=== PATIENT | female | born 1950 | race Caucasian/White ===

== ENCOUNTER 2017-04-24 19:31 | Emergency (ER) | payer MEDICARE, OTHER ==
--- NOTE | 2017-04-24 20:14 | UC ---
Respiratory Complaint HPI - HPI Summary HPI Summary: Started with nasal congestion and cough about 1.5 weeks ago. Saw PCP for routine DM/HTN recheck 5 days ago and was started on doxycycline because of her PND and cough. Today cough is worse, feels lots of pressure in her head and nose , cannot lie down or she starts coughing. No measured fever; is having some sweats. - History of Current Complaint Hx Obtained From: Patient ?: No Onset/Duration: Gradual Onset, Lasting Days Timing: Constant Severity Initially: Mild Severity Currently: Moderate Character: Cough: Productive Aggravating Factors: Exertion, Deep Breaths, Recumbent Position Alleviating Factors: Upright Position Associated Signs And Symptoms: Positive: Wheezing, URI, Nasal Congestion <Hannah Oates - Last Filed: 04/24/17 20:08> <Nova Conrad - Last Filed: 04/24/17 21:27> - History of Current Complaint Chief Complaint: UCRespiratory Stated Complaint: COUGH,CONGESTION,HEADACHE,ST Time Seen by Provider: 04/24/17 19:56 - Allergies/Home Medications Allergies/Adverse Reactions: Allergies Allergy/AdvReac Type Severity Reaction Status Date / Time Zolpidem [From Ambien] Allergy Severe "MAKES ME Verified 04/24/17 19:44 SLEEP WALK" IODINE CONTRAST Allergy Severe Hives Uncoded 04/24/17 19:44 Home Medications: Home Medications Amphetamine MIXED SALT TAB* [Adderall TAB*] 20 mg PO BID 04/24/17 [History Confirmed 04/24/17] Atorvastatin* [Lipitor 10 MG*] 04/24/17 [History] DOXYcycline CAP(*) [DOXYcycline 100MG CAP(*)] 100 mg PO BID 04/24/17 [History Confirmed 04/24/17] Dextromethorphan-Guaifenesin [Guaifenesin/Dextromethorp 400-20 mg] 1 tab PO PRN 04/24/17 [History] Gabapentin CAP(*) [Neurontin 100 mg CAP(*)] 04/24/17 [History] Losartan TAB* [Cozaar TAB*] 25 mg PO DAILY 04/24/17 [History Confirmed 04/24/17] metFORMIN* [Glucophage 1000 MG TAB *] 1,000 mg PO DAILY 04/24/17 [History Confirmed 04/24/17] tiZANidine TAB* [Zanaflex TAB*] 2 mg PO BEDTIME 04/24/17 [History Confirmed ] PMH/Surg Hx/FS Hx/Imm Hx Endocrine History: Diabetes Cardiovascular History: Hypertension - Surgical History Surgical History: Yes Surgery Procedure, Year, and Place: BACK SURGERIES, HYSTERECTOMY - Family History Known Family History: Positive: Hypertension, Diabetes - Social History Occupation: Employed Full-time Lives: Alone Alcohol Use: None Substance Use Type: None Smoking Status (MU): Never Smoked Tobacco <Hannah Oates - Last Filed: 04/24/17 20:08> Review of Systems Constitutional: Chills Skin: Negative Eyes: Negative ENT: Sore Throat, Nasal Discharge, Sinus Congestion Respiratory: Cough Cardiovascular: Negative Gastrointestinal: Negative Genitourinary: Negative Motor: Negative Neurovascular: Negative Musculoskeletal: Negative Neurological: Negative Psychological: Negative Is Patient Immunocompromised?: No All Other Systems Reviewed And Are Negative: Yes <Hannah Oates - Last Filed: 04/24/17 20:08> Physical Exam Triage Information Reviewed: Yes Appearance: Well-Appearing, Pain Distress - mild Vital Signs: Initial Vital Signs Temp 97.7 F 04/24/17 19:37 Pulse 74 04/24/17 19:37 Resp 18 04/24/17 19:37 BP 186/94 04/24/17 19:37 Pulse Ox 98 04/24/17 19:37 Vital Signs Reviewed: Yes Eye Exam: Normal Eyes: Positive: Conjunctiva Clear ENT: Positive: Hearing grossly normal, Pharynx normal, Nasal congestion, Nasal drainage. Negative: Tonsillar swelling - no tonsils, Tonsillar exudate Dental Exam: Normal Neck exam: Normal Neck: Positive: Supple, Nontender, No Lymphadenopathy Respiratory Exam: Other - frequent congested cough Respiratory: Positive: Rhonchi, Wheezing, Expiration Cardiovascular Exam: Normal Cardiovascular: Positive: RRR, No Murmur Musculoskeletal Exam: Normal Neurological Exam: Normal Neurological: Positive: Alert Psychological Exam: Normal Skin Exam: Normal <Hannah Oates - Last Filed: 04/24/17 20:08> Vital Signs: Initial Vital Signs Temp 97.7 F 04/24/17 19:37 Pulse 74 04/24/17 19:37 Resp 18 04/24/17 19:37 BP 186/94 04/24/17 19:37 Pulse Ox 98 04/24/17 19:37 <Nova Conrad - Last Filed: 04/24/17 21:27> Diagnostic Evaluation - Laboratory O2 Sat by Pulse Oximetry: 98 - Radiology Xray Interpretation: No Acute Changes Radiology Interpretation Completed By: Radiologist <Hannah Oates - Last Filed: 04/24/17 20:08> Respiratory Course/Dx - Differential Dx/Diagnosis Provider Diagnoses: Acute bronchitis. sinusitis <Hannah Oates - Last Filed: 04/24/17 20:08> Discharge <Hannah Oates - Last Filed: 04/24/17 20:08> <Nova Conrad - Last Filed: 04/24/17 21:27> - Discharge Plan Condition: Stable Disposition: HOME Prescriptions: Acetaminop/Codeine 30 MG TAB* [Tylenol/Codeine 30 MG TAB*] 1 tab PO Q6H PRN #20 tab MDD 4 PRN Reason: Cough Albuterol HFA INHALER* [Ventolin HFA Inhaler*] 1 - 2 puff INH Q4H PRN #1 mdi PRN Reason: wheeze, cough Amoxicillin/Clavulanate TAB* [Augmentin TAB 875*] 875 mg PO BID #14 tab Benzonatate CAP* [Tessalon CAP*] 100 mg PO TID PRN #30 cap PRN Reason: Cough Fluticasone HFA 110 mcg(NF) [Flovent HFA 110 mcg(NF)] 1 puff INH BID #1 mdi Patient Education Materials: Acute Bronchitis (ED), Sinusitis (ED) Referrals: Cinthia Hedrick MD [Primary Care Provider] - 1 Week Additional Instructions: As we discussed, you can either start the alternate antibiotic (and stop the doxycycline) now, or you can give symptomatic treatment 48 hours to work and NOT start the new antibiotic at all if you are improving. The second option is safer in that it limits your antibiotic exposure, but that would be my "plan B" if inhalers and cough remedies don't help. If you become very ill or develop high fevers, please go to the emergency department. Attestation Statement User Type: Provider - I was available for consult. This patient was seen by the OZIEL. The patient was not presented to, seen by, or examined by me. -Cecy <Nova Conrad - Last Filed: 04/24/17 21:27>
[2017-04-24 20:33] VITALS: BP 230/89
[2017-04-24] MEDS ORDERED: Albuterol 2.5 MG/3 ML NEB.SOL* (0.083%) INH ONE (20:33)
--- NOTE | 2017-04-24 20:37 | RAD ---
Indication: Cough, night sweats. 2 views of the chest including dual energy PA views demonstrate no mediastinal shift. Heart is of normal size and configuration. Lung arias are clear. IMPRESSION: No active cardiopulmonary disease is noted.
[2017-04-24] MEDS ORDERED: Acetaminop/Codeine 30 MG TAB* 1 TAB (300 MG/30 MG) PO ONE (21:10)
== END 2017-04-24 21:24 | disposition home or self-care (01) ==
LOC: UCEAST 19:31
DX: J20.9 Acute bronchitis, unspecified (principal); J32.9 Chronic sinusitis, unspecified; E11.9 Type 2 diabetes mellitus without complications; I10 Essential (primary) hypertension; Z79.84 Long term (current) use of oral hypoglycemic drugs
CPT/HCPCS: 71020; 99213; A9270-GY; G0463

== ENCOUNTER 2017-07-05 10:00 | Emergency (ER) | payer MEDICARE, OTHER ==
[2017-07-05 10:55] VITALS: BP 155/80
--- NOTE | 2017-07-05 11:22 | UC ---
Back Pain HPI - HPI Summary HPI Summary: Patient presents with a past medical history of chronic back pain and states she is s/p back surgery with rods. She states she has been working 30-40 hours a week and has had increased pain in her lower back. She states that the pain has become severe and changed in quality and location. She reports pain in the lower thoracic and lumbar area that radiates into the right buttock, hip and now also into the labial area which has never occurred before. She denies incontinence of bowel or bladder. She denies any injury or trauma. She has been off narcotic pain meds for two years, and states currently her pain in not controlled in ibuprofen and gabapentin. - History of Current Complaint Chief Complaint: UCBackPain Stated Complaint: LOWER BACK PAIN Time Seen by Provider: 07/05/17 11:06 Hx Obtained From: Patient ?: No Onset/Duration: Gradual Onset, Lasting Days Timing: Constant Severity Initially: Moderate Severity Currently: Severe Back Pain: Is Diffuse - lower thoracic and lmbar, Radiates To - rightbuttock, hip, and lateral right leg. and labia Character: Sharp Aggravating Factor(s): Movement, Lifting, Bending, Walking Alleviating Factor(s): Nothing Related History: Previous Back Injury - s/p back surgery - Risk Factors AAA Risk Factors: Negative TAD Risk Factors: Negative Cauda Equina Risk Factors: Negative, Perineal Anesthesia - perineal pain Epidural Abscess Risk Factors: Negative - Allergies/Home Medications Allergies/Adverse Reactions: Allergies Allergy/AdvReac Type Severity Reaction Status Date / Time Zolpidem [From Ambien] Allergy Severe "MAKES ME Verified 04/24/17 19:44 SLEEP WALK" IODINE CONTRAST Allergy Severe Hives Uncoded 04/24/17 19:44 Home Medications: Home Medications Ibuprofen [Ibuprofen 200 MG] 07/05/17 [History] PMH/Surg Hx/FS Hx/Imm Hx Previously Healthy: Yes - Surgical History Surgical History: Yes Surgery Procedure, Year, and Place: 3 BACK SURGERIES, HYSTERECTOMY, gallbladder - Family History Known Family History: Positive: Hypertension, Diabetes - Social History Occupation: Employed Full-time Lives: Alone Alcohol Use: None Substance Use Type: None Smoking Status (MU): Never Smoked Tobacco Review of Systems Constitutional: Negative Skin: Negative Eyes: Negative ENT: Negative Respiratory: Negative Cardiovascular: Negative Gastrointestinal: Negative Genitourinary: Negative Motor: Other - lower thoracic and lumbar back pain that radiates into right buttock, hip, leg and labia. Neurovascular: Negative Musculoskeletal: Arthralgia, Myalgia, Other: - perineal pain Neurological: Negative Psychological: Negative Is Patient Immunocompromised?: No All Other Systems Reviewed And Are Negative: Yes Physical Exam Triage Information Reviewed: Yes Appearance: Well-Appearing Vital Signs: Initial Vital Signs Temp 97.6 F 07/05/17 10:47 Pulse 68 07/05/17 10:47 Resp 16 07/05/17 10:47 BP 155/80 07/05/17 10:47 Pulse Ox 100 07/05/17 10:47 Vital Signs Reviewed: Yes Eye Exam: Normal ENT Exam: Normal Neck exam: Normal Neck: Positive: 1 Respiratory Exam: Normal Cardiovascular Exam: Normal Abdominal Exam: Normal Musculoskeletal: Positive: Other: - back inspection, vertebra ae in good aligment with no step-off of deformites. no areas of eccymosis, erythma, or edema. Well healed midline incision of lumbar. palpation,pain of lower lumbar midline, as well as lateral musculature. motor, lower extremity strength testing equal 2+ Sensorey, without deficits to touch. gait, guarded leaning towards left. Neurological Exam: Normal Psychological Exam: Normal Skin Exam: Normal Back Pain Course/Dx - Course Course Of Treatment: Patient presents with a past medical history of chronic back pain s/p surgery with no use of narcotic pain meds for two years. She has returned to work and has been working extra and has increased back pain that has also changed and now radiates into the perneal area, therefore I feel this patient needs a very through work-up to ensure that there are not any new findings that would warrent additonal treatment so therefore she was referred to the ER, and she declined ambulance transport. At the time of discharge she was neruo-vasc intact. She was discharged home and states will transport self to ED. - Differential Dx/Diagnosis Differential Diagnosis/HQI/PQRI: Other - acute on chronic back pain Provider Diagnoses: acute on chronic back pain Discharge - Discharge Plan Condition: Stable Disposition: HOME Referrals: Cinthia Hedrick MD [Primary Care Provider] - Additional Instructions: Recommend she go to the ER for further evaluation of her back pain.
== END 2017-07-05 11:16 | disposition home or self-care (01) ==
LOC: UCEAST 10:00
DX: M54.9 Dorsalgia, unspecified (principal); G89.29 Other chronic pain; Z98.1 Arthrodesis status
CPT/HCPCS: 99211; G0463

== ENCOUNTER 2017-07-05 15:41 | Emergency (ER) | payer MEDICARE, OTHER ==
--- OUTSIDE RECORDS SUMMARY | 2017-07-05 16:21 | XMS REPORT ---
:1950 External Reference #:[id number] Author Organization [facility] Address [address] [place] [address] Phone [phone] Care Team Providers Name Role Phone Cinthia Hedrick M.D. Primary Care Physician Unavailable Payers Type Date Identification Numbers Payment Provider Subscriber Commercial Policy Number: [id number] [employer] Nelda Mustafa PayID: [id number] [address] [place] [address] Problems Date Description Provider Status Onset: Type 2 diabetes mellitus Active Note: (mild) Onset: 06/27/2017 Tear film insufficiency Moiz Maier M.D. Active Onset: 06/27/2017 Nuclear senile cataract Moiz Maier M.D. Active Family History Date Family Member(s) Problem(s) Comments Father No Current Problems Mother No Current Problems Social History Type Date Description Comments Marital Status Legal Status: Occupation Part-Time @ [employer] Work Status Part-Time Employment ETOH Use Denies alcohol use Smoking Patient has never smoked Recreational Drug Use Denies Drug Use Daily Caffeine Does Not Consume Caffeine Allergies, Adverse Reactions, Alerts Date Description Reaction Status Severity Comments 06/27/2017 NKDA active Medications Medication Date Status Form Strength Qnty SIG Indications Ordering Provider Losartan Active Tablets 25mg Cannariato, Potassium 00 Cinthia M.D. Tizanidine HCL Active Tablets 4mg Cannariato, 00 Cinthia M.D. Gabapentin Active Capsules 100mg Cannariato, 00 Cinthia M.D. Amphetamine-Dext Active Tablets 20mg Cannariato, roamphetamine 00 Cinthia M.D. Ibuprofen Active Tablets 800mg Cannariato, 00 Cinthia M.D. Atorvastatin Active Tablets 40mg Cannariato, Calcium 00 Cinthia Brody Flovent HFA Active Aerosol 110mcg/Act Unknown 00 Results Description No Information Procedures Description No Information Plan of Care 06/27/2017 - Moiz Maier M.D.E11.9 Type 2 diabetes mellitus without complicationsComments:Smoking can increase the risk of developing or worsening any eye related disease, as well as affect your overall health. If you are a smoker, we strongly recommend that you quit.If you are not a smoker, we strongly recommend that you do not start. You have diabetes. I do not detect any changes in both of your retinas from diabetes at this time. Proper control of your diabetes is important for the health of your eyes. Changes in your eyes from diabetes can happen without symptoms, so it is important that you have your eyes examined.Follow up:1 Year Follow Up DFE You can expect to have your eyes dilated at your next visit. If Dr. Maier orders any additional testing, it may require extra time. We recommend that you bring sunglasses, as dilation drops often make you light sensitive until they wear off. We always recommend you bring someone to drive you home if you are uncomfortable driving with your eyes dilated. If you have any questions before your next visit, feel free to call our office at .H25.13 Age-related nuclear cataract, bilateralComments:You have been diagnosed with cataracts. If you are happy with your vision as it is now, then we willsee you at your next scheduled appointment. If you feel like your vision is getting worse before your scheduled appointment, please call Soumya or Stephie at [phone].H04.123 Dry eye syndrome of bilateral lacrimal glandsComments:Both of your eyes appear to be dry. Use artificial tears as directed. You can use the tears more often if you are reading a book or are on the computer, as we tend to blink less, making our eyes dry out more.[facility] offers a few items in our optical department to help alleviate dry eye symptoms.
[2017-07-05] MEDS ORDERED: EPI INJ ONE (17:07)
[2017-07-05] MEDS ORDERED: [UNRECOGNIZED DRUG - OTHER] INJ ONE (17:07)
[2017-07-05] MEDS ORDERED: BUPIVICAINE INJ ONE (17:07)
[2017-07-05] MEDS ORDERED: Bupivacaine 0.5% W/EPI SDV* 30 ML VIAL ONE (17:08)
--- NOTE | 2017-07-05 17:31 | ED ---
Back Pain - HPI Summary HPI Summary: Pt with hx of chronic back pain with 3 prior surgeries with c/o L sided back pain radiating down the L leg. No numbness or weakness but having difficulty driving and walking. Works on her feet. Hx of lumbar fusion. No difficulty with urinary retention or incontinence. No difficulty with bowel control. No injury. Nl saddle sensation. Seen in and sent here for reevaluation and possible MRI. - History of Current Complaint Chief Complaint: EDBackInjuryPain Stated Complaint: LOWER BACK PAIN Time Seen by Provider: 07/05/17 16:59 Pain Intensity: 7 - Allergies/Home Medications Allergies/Adverse Reactions: Allergies Allergy/AdvReac Type Severity Reaction Status Date / Time Zolpidem [From Ambien] Allergy Severe "MAKES ME Verified 04/24/17 19:44 SLEEP WALK" IODINE CONTRAST Allergy Severe Hives Uncoded 04/24/17 19:44 PMH/Surg Hx/FS Hx/Imm Hx Endocrine/Hematology History: Reports: Hx Diabetes - type2 Denies: Hx Thyroid Disease Cardiovascular History: Reports: Hx Hypertension Respiratory History: Denies: Hx Asthma, Hx Chronic Obstructive Pulmonary Disease (COPD) GI History: Denies: Hx Ulcer Musculoskeletal History: Reports: Other Musculoskeletal History - chronic back pain - Cancer History Hx Chemotherapy: No Hx Radiation Therapy: No - Surgical History Surgery Procedure, Year, and Place: 3 BACK SURGERIES, HYSTERECTOMY, gallbladder Infectious Disease History: No Infectious Disease History: Denies: Hx Clostridium Difficile, Hx Hepatitis, Hx Human Immunodeficiency Virus (HIV), Hx of Known/Suspected MRSA, Hx Shingles, Hx Tuberculosis, Hx Known/ Suspected VRE, Hx Known/Suspected VRSA, History Other Infectious Disease, Traveled Outside the [place] in Last 30 Days - Family History Known Family History: Positive: Hypertension, Diabetes - Social History Occupation: Employed Part-time - at [employer] Alcohol Use: None Substance Use Type: Reports: None Hx Tobacco Use: No Smoking Status (MU): Never Smoked Tobacco Review of Systems Constitutional: Negative Respiratory: Negative Gastrointestinal: Negative Negative: Abdominal Pain Negative: frequency, incontinence, pain Positive: Myalgia, Decreased ROM. Negative: Arthralgia Skin: Negative Negative: Weakness, Numbness All Other Systems Reviewed And Are Negative: Yes Physical Exam Triage Information Reviewed: Yes Vital Signs On Initial Exam: Initial Vitals Temp Pulse Resp BP Pulse Ox 36.9 C 79 18 170/90 95 07/05/17 15:51 07/05/17 15:51 07/05/17 15:51 07/05/17 15:51 07/05/17 15:51 Vital Signs Reviewed: Yes Appearance: Positive: Well-Appearing Skin: Positive: Warm, Dry Head/Face: Positive: Normal Head/Face Inspection Neck: Positive: Supple Respiratory/Lung Sounds: Positive: Clear to Auscultation Cardiovascular: Positive: Normal, RRR Musculoskeletal: Positive: Other - tender to palpation in the L mid to low lumbar musculature. Straight leg raise on L produces only back pain. Neurological: Positive: Other - antalgic gait. Nl saddle sensation. 2+ patellar DTRs. AVPU Assessment: Alert Procedures - Procedure Summary Procedure Summary: Trigger Point injection: For: Pain Desc: Pt with L lumbar pain/spasm. Cleaned Left low lumbar musculature with alcohol. Injected a total of 18cc of 0.5% Bupivicaine with epi in divided aliquots into muscle. Massaged into tissues. Pain relief was excellent. Now able to walk normally. Mynor well, no complications. Diagnostics - Vital Signs Vital Signs Temp Pulse Resp BP Pulse Ox 07/05/17 15:51 36.9 C 79 18 170/90 95 - Laboratory Lab Statement: Any lab studies that have been ordered have been reviewed, and results considered in the medical decision making process. Re-Evaluation - Re-Evaluation First Eval Change: Improved - back pain nearly resolved with block. Gait normalized Back Pain Course/Dx - Course Course Of Treatment: Pt with mostly muscular pain. Some radiculopathy without evidence for acute disc. Now ambulatory after block. D/C with f/u. No indication for acute MRI. - Diagnoses Differential Diagnosis/HQI/PQRI: Positive: Cauda Equina Syndrome - no evidence for acute disc/cauda/conus syndromes, Herniated Disc, Strain, Sprain Provider Diagnoses: Acute lumbar myofascial strain, Lumbar radiculopathy, acute Discharge - Discharge Plan Condition: Good Disposition: HOME Prescriptions: Cyclobenzaprine HCl [Flexeril 5 mg (NF)] 5 mg PO TID PRN #15 tab PRN Reason: muscle pain Naproxen [Naproxen 500 mg] 500 mg PO Q8H PRN #10 tab PRN Reason: Pain predniSONE TAB* [Deltasone TAB*] 50 mg PO DAILY #3 tab Patient Education Materials: Sciatica (ED) Forms: *Work Release Referrals: Cinthia Hedrick MD [Primary Care Provider] - Additional Instructions: Return with numbness/weakness, difficulty with bowel or bladder, worse or other concerns as discussed.
[2017-07-05 17:37] VITALS: BP 157/66
== END 2017-07-05 17:36 | disposition home or self-care (01) ==
LOC: ED 15:41
DX: S39.012A Strain of muscle, fascia and tendon of lower back, initial encounter (principal); M54.16 Radiculopathy, lumbar region; M54.5 Low back pain; E11.9 Type 2 diabetes mellitus without complications; Z86.79 Personal history of other diseases of the circulatory system; X58.XXXA Exposure to other specified factors, initial encounter; Y93.9 Activity, unspecified; Y92.9 Unspecified place or not applicable
CPT/HCPCS: 99281

== ENCOUNTER 2017-09-14 10:15 | Emergency (ER) | payer MEDICARE ==
[2017-09-14] MEDS ORDERED: Ondansetron ODT TAB* 4 MG PO ONE (11:47)
[2017-09-14] MEDS ORDERED: Ketorolac INJ* 60 MG/2 ML VIAL IM ONE (11:47)
[2017-09-14] MEDS ORDERED: oxyCODONE/Acetamin 5/325 MG* TAB PO ONE (11:49)
--- NOTE | 2017-09-14 11:52 | RAD ---
INDICATION: Low back pain. COMPARISON: There are no prior studies available for comparison. TECHNIQUE: 3 views of the lumbar spine were obtained including lateral, AP and a coned-down lateral view of the lumbar sacral junction. FINDINGS: The vertebra are in normal alignment. The patient is status post posterior spinal fusion at the L4, L5 and S1 levels with pedicle screws. The surgical hardware appears intact. There appears to be partial fusion of the L4-L5 and L5-S1 discs. No fracture is seen. There is mild to moderate degenerative disc disease at the T12-L1, L1-L2, L2-L3 and L3-L4 levels. IMPRESSION: 1. MILD TO MODERATE DEGENERATIVE DISC DISEASE. 2. STATUS POST POSTERIOR SPINAL FUSION AT THE L4-S1 LEVELS.
[2017-09-14 12:48] LABS: Urine Appearance Clear; Urine Blood Negative (Negative); Urine Color Yellow; Urine Ketones Negative (Negative); Urine Protein Negative (Negative); Urine Specific Gravity 1.016 (1.010-1.030); Urine Urobilinogen Negative (Negative)
[2017-09-14 13:52] LABS: ABS Basophils 0 10^3/ul (0-0.2); ABS Eosinophils 0.3 10^3/ul (0-0.6); ABS Lymphocytes 2.8 10^3/ul (1.0-4.8); ABS Monocytes 0.5 10^3/ul (0-0.8); ABS Neutrophils 4.4 10^3/ul (1.5-7.7); ABS Nucleated RBC 0 10^3/ul; Eosinophil % 3.5 % (0-6); Hematocrit 39 % (35-47); Mean Corpuscular HGB Conc 33 g/dl (31-36); Mean Corpuscular Hemoglobin 28 pg (27-31); Mean Corpuscular Volume 84 fL (80-97); Mean Platelet Volume 8 um3 (7.4-10.4); Nucleated Red Blood Cells % 0; Platelet Count 205 10^3/ul (150-450); Red Blood Count 4.66 10^6/ul (4.0-5.4); Red Cell Distribution Width 13 % (10.5-15)
[2017-09-14 14:07] LABS: EGFR Non-African American 57.6 (>60)
[2017-09-14 14:59] VITALS: BP 142/57
--- NOTE | 2017-09-19 19:32 | ED ---
Eleazar Cohen Julia, scribed for Sandip Pichardo MD on 09/14/17 at 1042 . Back Pain - HPI Summary HPI Summary: This patient is a 66 year old F presenting to [facility] with a chief complaint of lower back pain radiating down the lateral right leg to the heel worsening today. Patient reports right leg weakness, and lateral right leg sensitivity. Patient denies incontinence and saddle anesthesia. The patient rates the pain 7/ 10 in severity. Symptoms aggravated by walking. She has had three back operations with hardware placed, with the last operation in 2009. Patient has chronic back problems. - History of Current Complaint Chief Complaint: EDBackInjuryPain Stated Complaint: BACK PAIN Hx Obtained From: Patient Onset/Duration: Other - acute on chronic Onset/Duration: Still Present Timing: Constant Back Pain Location: Is Discrete @ - R low back Pain Intensity: 7 Character: Unable to Describe - "sensitive" Aggravating Symptom(s): Walking Associated Signs And Symptoms: Positive: Weakness Related History: Previous Back Injury - Allergies/Home Medications Allergies/Adverse Reactions: Allergies Allergy/AdvReac Type Severity Reaction Status Date / Time Iodinated Contrast- Oral and Allergy Intermediate Hives Verified 09/14/17 12:16 IV Dye zolpidem AdvReac Severe "makes me Verified 09/14/17 12:16 sleep walk" PMH/Surg Hx/FS Hx/Imm Hx Endocrine/Hematology History: Reports: Hx Diabetes - type2 Denies: Hx Thyroid Disease Cardiovascular History: Reports: Hx Hypertension Respiratory History: Denies: Hx Asthma, Hx Chronic Obstructive Pulmonary Disease (COPD) GI History: Denies: Hx Ulcer Musculoskeletal History: Reports: Other Musculoskeletal History - chronic back pain Psychiatric History: Reports: Hx Attention Deficit Hyperactivity Disorder - Cancer History Hx Chemotherapy: No Hx Radiation Therapy: No - Surgical History Surgery Procedure, Year, and Place: 3 BACK SURGERIES, HYSTERECTOMY, gallbladder Infectious Disease History: No Infectious Disease History: Denies: Hx Clostridium Difficile, Hx Hepatitis, Hx Human Immunodeficiency Virus (HIV), Hx of Known/Suspected MRSA, Hx Shingles, Hx Tuberculosis, Hx Known/ Suspected VRE, Hx Known/Suspected VRSA, History Other Infectious Disease, Traveled Outside the [place] in Last 30 Days - Family History Known Family History: Positive: Hypertension, Diabetes - Social History Alcohol Use: None Substance Use Type: Reports: None Hx Tobacco Use: No Smoking Status (MU): Never Smoked Tobacco Review of Systems Negative: incontinence Positive: Myalgia - back pain, R leg pain Positive: Weakness - R leg. Negative: Paresthesia - saddle anesthesia All Other Systems Reviewed And Are Negative: Yes Physical Exam - Summary Physical Exam Summary: Appearance: Well-appearing, Well-nourished Skin: Warm, Dry, No rash Eyes: Normal, PERRL, EOMI, sclera anicteric ENT: Normal Neck: Supple, nontender Respiratory: Clear to auscultation Cardiovascular: S1, S2, no murmur, no rub, no gallop Abdomen: Soft, nontender, no organomegaly Bowel sounds: Present Musculoskeletal: ROM intact, no edema, pulses symmetrical, weakness of the lateral gastrocnemius , weakness with toe walking, pain in sciatic notch, positive straight leg raise at 30 degree Neurological: Normal, A&Ox3, cranial nerves II-XII WNL, follows commands, , sensation intact to pin and light touch, numbness of the L5, S1 distribution Psychiatric: affect normal, behavior appropriate, dressed appropriately, judgment intact Triage Information Reviewed: Yes Vital Signs On Initial Exam: Initial Vitals Temp Pulse Resp BP Pulse Ox 97.8 F 73 20 164/89 98 09/14/17 10:16 09/14/17 10:16 09/14/17 10:16 09/14/17 10:16 09/14/17 10:16 Vital Signs Reviewed: Yes Diagnostics - Vital Signs Vital Signs Temp Pulse Resp BP Pulse Ox 09/14/17 10:16 97.8 F 73 20 164/89 98 - Laboratory Lab Statement: Any lab studies that have been ordered have been reviewed, and results considered in the medical decision making process. - Radiology Lumbar Spine XR Radiology Interpretation Completed By: Radiologist - 1. MILD TO MODERATE DEGENERATIVE DISC DISEASE. 2. STATUS POST POSTERIOR SPINAL FUSION AT THE L4-S1 LEVELS. ED Physician has reviewed this report. Back Pain Course/Dx - Course Course Of Treatment: Patient presents with lower back pain radiating down the lateral right leg to the heel worsening today. Patient reports right leg weakness, and lateral right leg sensitivity. She has three previous thoracic spine surgeries with spinal stenosis. She states she has had a referal to the local pain clinic but has been unable to get an appointment. A lumbar spine X- ray reveals degenerative disc disease and in place hardware. Patient is given Toradol, Zofran, and Oxycodone. Patient is discharged and instructed to follow up with a pain management Physician. - Diagnoses Provider Diagnoses: DDD (degenerative disc disease), Low back pain Discharge - Discharge Plan Condition: Good Disposition: HOME Prescriptions: Oxycodone HCl/Acetaminophen [Percocet 5-325 mg Tablet] 1 each PO TID PRN 7 Days #21 tablet MDD 3 PRN Reason: Pain Scale 6-10 Patient Education Materials: Lumbar Disc Herniation (ED), Degenerative Disc Disease (ED) Referrals: Cinthia Hedrick MD [Primary Care Provider] - Tayler Lyman NP [Nurse Practitioner] - The documentation as recorded by the Eleazar hawk Julia accurately reflects the service I personally performed and the decisions made by me, Sandip Pichardo MD.
== END 2017-09-14 15:00 | disposition home or self-care (01) ==
LOC: ED 10:15
DX: M51.35 Other intervertebral disc degeneration, thoracolumbar region (principal); M54.5 Low back pain; R53.1 Weakness; E11.9 Type 2 diabetes mellitus without complications; Z86.79 Personal history of other diseases of the circulatory system
CPT/HCPCS: 36415; 72100; 80053; 81003; 85025; 96372; 99283; A9270-GY

== ENCOUNTER 2018-01-16 16:56 | Emergency (ER) | payer MEDICARE ==
[2018-01-16 17:17] VITALS: BP 144/92
[2018-01-16] MEDS ORDERED: Ibuprofen TAB* 600 MG PO ONE (17:38)
--- NOTE | 2018-01-16 17:38 | UC ---
Complaint Female HPI - HPI Summary HPI Summary: This patient is a 67 year old F presenting to [facility] with a chief complaint of dysuria and frequency of urination since 2 weeks ago. The patient rates the pain 7/10 in severity. Symptoms aggravated by urination. Symptoms alleviated by nothing. Patient reports pain in bilateral thighs, hips, hands and back. The patient reports that her stool has seemed thicker than usual recently. Patient denies shortness of breath, chest pain, or bloody stool. The patient has previously had several UTIs. The patient has hx of chronic back pain and takes Nucynta. - History Of Current Complaint Chief Complaint: UCGU Stated Complaint: UTI Time Seen by Provider: 01/16/18 17:17 Hx Obtained From: Patient Hx Last Menstrual Period: post menopause Onset/Duration: Gradual Onset, Lasting Weeks - 2 weeks, Still Present Timing: Constant Severity Initially: Moderate Severity Currently: Moderate Pain Intensity: 7 Pain Scale Used: 0-10 Numeric Character: Burning Aggravating Factor(s): Urination Alleviating Factor(s): Nothing Associated Signs And Symptoms: Positive: Back Pain - Allergies/Home Medications Allergies/Adverse Reactions: Allergies Allergy/AdvReac Type Severity Reaction Status Date / Time Iodinated Contrast- Oral and Allergy Intermediate Hives Verified 11/16/17 13:42 IV Dye zolpidem AdvReac Severe "makes me Verified 11/16/17 13:42 sleep walk" Home Medications: Home Medications Pumpkin Seed Extract/Soy Germ [Azo Bladder Control Capsule] 01/16/18 [History] PMH/Surg Hx/FS Hx/Imm Hx Other GI/ History: UTIs - Surgical History Surgical History: Yes Surgery Procedure, Year, and Place: 3 BACK SURGERIES, HYSTERECTOMY, gallbladder - Family History Known Family History: Positive: Hypertension, Diabetes - Social History Alcohol Use: None Substance Use Type: None 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 Smoking Status (MU): Never Smoked Tobacco Review of Systems ENT: Negative - negative epistaxis Respiratory: Negative - negative cough Gastrointestinal: Negative - negative diarrhea Genitourinary: Dysuria, Frequency All Other Systems Reviewed And Are Negative: Yes Physical Exam - Summary Physical Exam Summary: General: well-appearing, mild pain distress Skin: warm, color reflects adequate perfusion, dry Head: normal Eyes: EOMI, NICOLE ENT: normal Neck: supple, nontender Respiratory: CTA, breath sounds present Cardiovascular: RRR Abdomen: soft, bilateral flank tenderness, suprapubic tenderness Bowel: present Musculoskeletal: normal, strength/ROM intact Neurological: sensory/motor intact, A&O x3 Psychological: affect/mood appropriate Triage Information Reviewed: Yes Vital Signs: Initial Vital Signs Temp 98.8 F 01/16/18 17:11 Pulse 95 01/16/18 17:11 Resp 18 01/16/18 17:11 BP 144/92 01/16/18 17:11 Pulse Ox 98 01/16/18 17:11 Vital Signs Reviewed: Yes Complaint Female Dx - Course Course Of Treatment: DISCUSSED UA RESULTS WITH THE PATIENT AND THE NEED FOR FURTHER EVALUATION IF HER CONDITION WORSENS. F/U PMD; RECHECK SOONER IF WORSE. - Differential Dx/Diagnosis Provider Diagnoses: UTI Discharge - Sign-Out/Discharge Documenting (check all that apply): Patient Departure - Discharge Plan Condition: Stable Disposition: HOME Prescriptions: Sulfamethox/Trimethoprim DS* [Bactrim DS 800/160 TAB*] 1 tab PO BID #20 tab Patient Education Materials: Urinary Tract Infection in Women (ED) Referrals: Cinthia Hedrick MD [Primary Care Provider] - Additional Instructions: FOLLOW UP WITH YOUR DOCTOR. GET RECHECKED FOR ANY WORSENING OF YOUR CONDITION; FEVER, YOU FEEL ILL, PAIN OR QUESTIONS OR CONCERNS. - Billing Disposition and Condition Condition: STABLE Disposition: Home
== END 2018-01-16 18:15 | disposition home or self-care (01) ==
LOC: UCEAST 16:56
DX: N39.0 Urinary tract infection, site not specified (principal); Z87.440 Personal history of urinary (tract) infections; M79.652 Pain in left thigh; M79.651 Pain in right thigh; M25.552 Pain in left hip; M25.551 Pain in right hip; M79.642 Pain in left hand; M79.641 Pain in right hand; M54.9 Dorsalgia, unspecified; Z90.710 Acquired absence of both cervix and uterus; Z90.49 Acquired absence of other specified parts of digestive tract; Z88.8 Allergy status to other drugs, medicaments and biological substances; Z91.041 Radiographic dye allergy status; Z82.49 Family history of ischemic heart disease and other diseases of the circulatory system; Z83.3 Family history of diabetes mellitus
CPT/HCPCS: 81003; 87086; 99212; A9270-GY; G0463

== ENCOUNTER 2018-04-24 16:35 | Emergency (ER) | payer MEDICARE ==
[2018-04-24] MEDS ORDERED: Cyclobenzaprine TAB* 10 MG PO ONE (17:52)
[2018-04-24] MEDS ORDERED: NS 0.9% 1000 ML* 1,000 ML IV ONE (17:52)
[2018-04-24 18:00] LABS: ABS Basophils 0 10^3/ul (0-0.2); ABS Eosinophils 0 10^3/ul (0-0.6); ABS Monocytes 0.7 10^3/ul (0-0.8); ABS Neutrophils 9.9 10^3/ul (1.5-7.7); ABS Nucleated RBC 0 10^3/ul; Eosinophil % 0.4 % (0-6); Hematocrit 39 % (35-47); Hemoglobin 13.2 g/dl (12.0-16.0); Lymphocyte % 15.9 % (25-47); Mean Corpuscular HGB Conc 34 g/dl (31-36); Mean Corpuscular Hemoglobin 28 pg (27-31); Mean Corpuscular Volume 83 fL (80-97); Nucleated Red Blood Cells % 0; Platelet Count 278 10^3/ul (150-450); Red Blood Count 4.71 10^6/ul (4.00-5.40); Red Cell Distribution Width 14 % (10.5-15); White Blood Count 12.7 10^3/ul (3.5-10.8)
[2018-04-24 18:18] LABS: EGFR Non-African American 65.1 (>60)
--- NOTE | 2018-04-24 18:41 | RAD ---
EXAM: CT Abdomen and Pelvis Without Intravenous Contrast CLINICAL HISTORY: 67 years old, female; Pain; Abdominal pain; Generalized; Prior surgery; Surgery date: 6+ months; Surgery type: Cholecystectomy, hysterectomy, lumbar; Additional info: Abd pain, allergy top contrast TECHNIQUE: Axial computed tomography images of the abdomen and pelvis without intravenous contrast. All CT scans at this facility use at least one of these dose optimization techniques: automated exposure control; mA and/or kV adjustment per patient size (includes targeted exams where dose is matched to clinical indication); or iterative reconstruction. Coronal and sagittal reformatted images were created and reviewed. COMPARISON: No relevant prior studies available. FINDINGS: Lung bases: Unremarkable. No mass. No consolidation. ABDOMEN: Liver: Unremarkable. Gallbladder and bile ducts: Cholecystectomy. No ductal dilation. Pancreas: Unremarkable. No ductal dilation. Spleen: Unremarkable. No splenomegaly. Adrenals: Unremarkable. No mass. Kidneys and ureters: Unremarkable. No obstructing stones. No hydronephrosis. Stomach and bowel: Unremarkable. No obstruction. No mucosal thickening. PELVIS: Appendix: Normal appendix. Bladder: Unremarkable. No stones. Reproductive: Hysterectomy. ABDOMEN and PELVIS: Intraperitoneal space: Unremarkable. No free air. No significant fluid collection. Bones/joints: Lower lumbar fusion. Moderate skeletal degenerative change. No acute fracture. No dislocation. Soft tissues: Unremarkable. Vasculature: Atherosclerosis. No abdominal aortic aneurysm. Lymph nodes: Unremarkable. No enlarged lymph nodes. Other findings: No other acute disease seen. As above. IMPRESSION: No acute disease seen. As above. To contact [facility] with a general question: [facility] - [phone] For direct physician to physician contact: Physician Hotline - [phone] [facility] ([facility] Facility ID #[id number])
--- NOTE | 2018-04-24 19:30 | ED ---
Back Pain - HPI Summary HPI Summary: Patient complains of right-sided lower back pain, sensation of abdominal swelling and pain starting today. Low back pain is chronic, worse with bending and sitting, radiates to right hip. Abdominal pain described as bilateral lower abdomen, constant, new onset. Patient states she also ran out of her hydrocodone 5 days. Patient has pain management contract for chronic pain. Denies fever, cough, sore throat, CP, SOB, N/V/D, change in urine, change in BM. Medical history is DM, HTN, HDL, chronic pain. Abdominal surgical history is BTL, total hysterectomy, Colee cystectomy. - History of Current Complaint Chief Complaint: EDBackInjuryPain Stated Complaint: BACK PAIN Time Seen by Provider: 04/24/18 17:15 Hx Obtained From: Patient Hx Last Menstrual Period: post menopause Onset/Duration: Gradual Onset Onset/Duration: Started Hours Ago Timing: Constant Severity Initially: Severe Severity Currently: Severe Pain Intensity: 10 Pain Scale Used: 0-10 Numeric Character: Throbbing Aggravating Symptom(s): Movement Alleviating Symptom(s): Rest Associated Signs And Symptoms: Positive: Abdominal Pain - Allergies/Home Medications Allergies/Adverse Reactions: Allergies Allergy/AdvReac Type Severity Reaction Status Date / Time Iodinated Contrast- Oral and Allergy Intermediate Hives Verified 11/16/17 13:42 IV Dye zolpidem AdvReac Severe "makes me Verified 11/16/17 13:42 sleep walk" PMH/Surg Hx/FS Hx/Imm Hx Endocrine/Hematology History: Reports: Hx Diabetes - type2 Denies: Hx Thyroid Disease Cardiovascular History: Reports: Hx Hypertension Respiratory History: Denies: Hx Asthma, Hx Chronic Obstructive Pulmonary Disease (COPD) GI History: Denies: Hx Ulcer Musculoskeletal History: Reports: Other Musculoskeletal History - chronic back pain Psychiatric History: Reports: Hx Attention Deficit Hyperactivity Disorder - Cancer History Hx Chemotherapy: No Hx Radiation Therapy: No - Surgical History Surgery Procedure, Year, and Place: 3 BACK SURGERIES, HYSTERECTOMY, gallbladder Infectious Disease History: No Infectious Disease History: Denies: Hx Clostridium Difficile, Hx Hepatitis, Hx Human Immunodeficiency Virus (HIV), Hx of Known/Suspected MRSA, Hx Shingles, Hx Tuberculosis, Hx Known/ Suspected VRE, Hx Known/Suspected VRSA, History Other Infectious Disease, Traveled Outside the [place] in Last 30 Days - Family History Known Family History: Positive: Hypertension, Diabetes - Social History Alcohol Use: None Substance Use Type: Reports: None 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 Abdomen diffusely tender. Lower back diffusely tender bilaterally. PMS intact distally in bilateral lower extremities. Triage Information Reviewed: Yes Vital Signs On Initial Exam: Initial Vitals Temp Pulse Resp BP Pulse Ox 97.8 F 100 16 157/98 96 04/24/18 16:45 04/24/18 16:45 04/24/18 16:45 04/24/18 16:45 04/24/18 16:45 Vital Signs Reviewed: Yes Appearance: Positive: Well-Appearing Head/Face: Positive: Normal Head/Face Inspection Eyes: Positive: Normal Neck: Positive: Supple Respiratory/Lung Sounds: Positive: Clear to Auscultation Cardiovascular: Positive: Normal Abdomen Description: Positive: Other: Musculoskeletal: Positive: Normal Neurological: Positive: Normal Psychiatric: Positive: Normal AVPU Assessment: Alert - Joann Coma Scale Best Eye Response: 4 - Spontaneous Best Motor Response: 6 - Obeys Commands Best Verbal Response: 5 - Oriented Coma Scale Total: 15 Diagnostics - Vital Signs Vital Signs Temp Pulse Resp BP Pulse Ox 04/24/18 18:10 77 98 04/24/18 17:55 95 165/91 98 04/24/18 17:25 88 165/96 98 04/24/18 17:00 99 99 04/24/18 16:55 98 164/95 96 04/24/18 16:54 101 97 04/24/18 16:45 97.8 F 100 16 157/98 96 - Laboratory Lab Results: Lab Results 04/24/18 04/24/18 Range/Units 17:47 17:47 WBC 12.7 H (3.5-10.8) 10^3/ul RBC 4.71 (4.00-5.40) 10^6/ul Hgb 13.2 (12.0-16.0) g/dl Hct 39 (35-47) % MCV 83 (80-97) fL MCH 28 (27-31) pg MCHC 34 (31-36) g/dl RDW 14 (10.5-15) % Plt Count 278 (150-450) 10^3/ul MPV 8.0 (7.4-10.4) um3 Neut % (Auto) 77.9 (38-83) % Lymph % (Auto) 15.9 L (25-47) % [place] % (Auto) 5.5 (0-7) % Eos % (Auto) 0.4 (0-6) % Baso % (Auto) 0.3 (0-2) % Absolute Neuts (auto) 9.9 H (1.5-7.7) 10^3/ul Absolute Lymphs (auto) 2.0 (1.0-4.8) 10^3/ul Absolute Monos (auto) 0.7 (0-0.8) 10^3/ul Absolute Eos (auto) 0 (0-0.6) 10^3/ul Absolute Basos (auto) 0 (0-0.2) 10^3/ul Absolute Nucleated RBC 0 10^3/ul Nucleated RBC % 0 Sodium 138 (135-145) mmol/L Potassium 3.1 L (3.5-5.0) mmol/L Chloride 104 (101-111) mmol/L Carbon Dioxide 25 (22-32) mmol/L Anion Gap 9 (2-11) mmol/L BUN 20 (6-24) mg/dL Creatinine 0.87 (0.51-0.95) mg/dL Est GFR ( Amer) 78.8 (>60) Est GFR (Non-Af Amer) 65.1 (>60) BUN/Creatinine Ratio 23.0 H (8-20) Glucose 181 H (70-100) mg/dL Calcium 9.8 (8.6-10.3) mg/dL Total Bilirubin 0.70 (0.2-1.0) mg/dL AST 14 (13-39) U/L ALT 18 (7-52) U/L Alkaline Phosphatase 124 H (34-104) U/L Troponin I 0.00 (<0.04) ng/mL C-Reactive Protein 11.61 H (<8.01) mg/L Total Protein 6.8 (6.4-8.9) g/dL Albumin 4.4 (3.2-5.2) g/dL Globulin 2.4 (2-4) g/dL Albumin/Globulin Ratio 1.8 (1-3) Lipase 33 (11.0-82.0) U/L Result Diagrams: 04/24/18 17:47 04/24/18 17:47 Lab Statement: Any lab studies that have been ordered have been reviewed, and results considered in the medical decision making process. - CT ab/pel CT Interpretation: No Acute Changes CT Interpretation Completed By: Radiologist - EKG 1 Cardiac Rate: NL EKG Rhythm: Sinus Rhythm ST Segment: Non-Specific Ectopy: None Back Pain Course/Dx - Course Course Of Treatment: Patient complains of right-sided lower back pain, sensation of abdominal swelling and pain starting today. Low back pain is chronic, worse with bending and sitting, radiates to right hip. Abdominal pain described as bilateral lower abdomen, constant, new onset. Patient states she also ran out of her hydrocodone 5 days. Patient has pain management contract for chronic pain. Denies fever, cough, sore throat, CP, SOB, N/V/D, change in urine, change in BM. Medical history is DM, HTN, HDL, chronic pain. Abdominal surgical history is BTL, total hysterectomy, Colee cystectomy. Physical exam: Patient ambulatory. Abdomen diffusely tender. Lower back diffusely tender bilaterally. PMS intact distally in bilateral lower extremities. Ambulated to bathroom. Out of opiates 5 days. Some improvement with Flexeril and Valium. Follow-up with pain management. Vital signs normal. CT abdomen pelvis negative. Labs unremarkable. - Diagnoses Provider Diagnoses: Back pain, Abdominal pain Discharge - Sign-Out/Discharge Documenting (check all that apply): Patient Departure - Discharge Plan Condition: Stable Disposition: HOME Prescriptions: Cyclobenzaprine TAB* [Flexeril 10 MG TAB*] 10 mg PO TID PRN 3 Days #8 tab PRN Reason: Pain Patient Education Materials: Abdominal Pain (ED), Back Pain (ED), Lower Back Exercises (ED) Referrals: Cinthia Hedrick MD [Primary Care Provider] - Additional Instructions: Follow-up with pain management for control of chronic back pain. Return to the ED for any new or worsening symptoms - Billing Disposition and Condition Condition: STABLE Disposition: Home
[2018-04-24] MEDS ORDERED: Diazepam TAB(*) 5 MG PO ONE (19:33)
[2018-04-24] MEDS ORDERED: Potassium Chlor TAB* 20 MEQ TAB.ER PO ONE (20:18)
[2018-04-24 20:35] VITALS: BP 168/95
--- NOTE | 2018-04-25 07:50 | RAD ---
INDICATION: Epigastric pain. COMPARISON: Comparison is made with prior study from April 24, 2017. TECHNIQUE: Dual-energy PA and lateral views of the chest were obtained. FINDINGS: The heart is within normal limits in size. Mediastinal and hilar contours appear within normal limits. There is a small calcific nodule which projects over the left midlung most consistent with old granulomatous disease which is unchanged. The lungs are otherwise clear. No pleural effusion is seen. IMPRESSION: NO EVIDENCE FOR ACTIVE CARDIOPULMONARY DISEASE. R1
== END 2018-04-24 20:34 | disposition home or self-care (01) ==
LOC: ED 16:35
DX: M54.5 Low back pain (principal); R10.32 Left lower quadrant pain; R10.31 Right lower quadrant pain; R10.13 Epigastric pain; Z90.710 Acquired absence of both cervix and uterus; Z90.49 Acquired absence of other specified parts of digestive tract; Z88.8 Allergy status to other drugs, medicaments and biological substances; Z91.041 Radiographic dye allergy status
CPT/HCPCS: 36415; 71046; 74176; 80053; 83690; 83880; 84484; 85025; 86140; 93005; 96360; 99282; A9270-GY

== ENCOUNTER 2018-07-14 13:07 | Emergency (ER) | payer MEDICARE ==
[2018-07-14 14:09] VITALS: BP 133/69
--- NOTE | 2018-07-14 15:17 | UC ---
Complaint Female HPI - HPI Summary HPI Summary: The patient is a 67-year-old female with the onset of dysuria urgency and frequency of urination since 07/03. She states she has vulvar pain and burning. She denies any vaginal discharge. She states her urine is cloudy. She denies any fever or chills. She denies any nausea vomiting or diarrhea. She states that she had intercourse on 1224 after an 18 year period of abstinence. - History Of Current Complaint Chief Complaint: UCGU Stated Complaint: CLOUDY, PAINFUL URINATION Time Seen by Provider: 07/14/18 14:42 Hx Obtained From: Patient Hx Last Menstrual Period: post menopause Onset/Duration: Sudden Onset, Lasting Days Timing: Constant Severity Initially: Moderate Severity Currently: Moderate Pain Intensity: 8 Pain Scale Used: 0-10 Numeric Character: Burning Alleviating Factor(s): Nothing Associated Signs And Symptoms: Negative: Fever, Back Pain, Vaginal Bleeding/ Discharge, Vaginal Discharge, Nausea, Vomiting(# Of Episodes =), Genital Swelling, Genital Blisters, Retained Foregin Body (Specify) - Allergies/Home Medications Allergies/Adverse Reactions: Allergies Allergy/AdvReac Type Severity Reaction Status Date / Time Iodinated Contrast- Oral and Allergy Intermediate Hives Verified 07/14/18 14:09 IV Dye zolpidem AdvReac Severe "makes me Verified 07/14/18 14:09 sleep walk" Home Medications: Home Medications Phenazopyridine HCl [Urinary Pain Relief] 1 tab PO ONCE PRN 07/14/18 [History Confirmed 07/14/18] PMH/Surg Hx/FS Hx/Imm Hx Endocrine History: Diabetes Cardiovascular History: Hypertension - Surgical History Surgical History: Yes Surgery Procedure, Year, and Place: 3 BACK SURGERIES, HYSTERECTOMY, gallbladder - Family History Known Family History: Positive: Hypertension, Diabetes, Other - she thinks both her parents of cancer - Social History Alcohol Use: Occasionally Substance Use Type: None 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 Smoking Status (MU): Never Smoked Tobacco Review of Systems All Other Systems Reviewed And Are Negative: Yes Constitutional: Positive: Negative Skin: Positive: Negative Eyes: Positive: Negative ENT: Positive: Negative Respiratory: Positive: Negative Cardiovascular: Positive: Negative Gastrointestinal: Positive: Negative Genitourinary: Positive: Dysuria, Frequency, Urgency, Vaginal/Penile Burning Motor: Positive: Negative Neurovascular: Positive: Negative Musculoskeletal: Positive: Negative Neurological: Positive: Negative Psychological: Positive: Negative Physical Exam Triage Information Reviewed: Yes Appearance: Well-Appearing, No Pain Distress, Well-Nourished Vital Signs: Initial Vital Signs Temp 98.6 F 07/14/18 14:00 Pulse 71 07/14/18 14:00 Resp 20 07/14/18 14:00 BP 133/69 07/14/18 14:00 Pulse Ox 97 07/14/18 14:00 Vital Signs Reviewed: Yes Eyes: Positive: Conjunctiva Clear ENT: Positive: Hearing grossly normal. Negative: Nasal congestion, Nasal drainage, Tonsillar swelling, Tonsillar exudate, Hoarse voice, Dental tenderness , Sinus tenderness Neck: Positive: Supple Respiratory: Positive: Lungs clear, Normal breath sounds, No respiratory distress, No accessory muscle use Cardiovascular: Positive: RRR, No Murmur Abdomen Description: Positive: Nontender, No Organomegaly, Soft. Negative: CVA Tenderness (R), CVA Tenderness (L), Distended, Guarding Bowel Sounds: Positive: Present Pelvic Exam: Negative: External Exam Normal - appears inflammed but no descrete lesions, Lesions Musculoskeletal: Positive: ROM Intact, No Edema Neurological: Positive: Alert Psychological Exam: Normal Skin Exam: Normal Complaint Female Dx - Differential Dx/Diagnosis Provider Diagnosis: Dysuria Discharge - Sign-Out/Discharge Documenting (check all that apply): Patient Departure All imaging exams completed and their final reports reviewed: No Studies - Discharge Plan Condition: Stable Disposition: HOME Prescriptions: Cephalexin CAP* [Keflex CAP*] 500 mg PO BID #14 cap Patient Education Materials: Dysuria (ED) Referrals: Cinthia Hedrick MD [Primary Care Provider] - 3 Days (if not better) Additional Instructions: Take two doses of Keflex today One when script filled and one at betime a urine culture is pending tested for stds are pending recheck for new or worsening symptoms or in 2-3 days if not improved - Billing Disposition and Condition Condition: STABLE Disposition: Home
== END 2018-07-14 15:30 | disposition home or self-care (01) ==
LOC: UCEAST 13:07
DX: R30.0 Dysuria (principal); Z88.8 Allergy status to other drugs, medicaments and biological substances; Z91.041 Radiographic dye allergy status
CPT/HCPCS: 87077; 87086; 87186; 87480; 87491; 87510; 87529; 87591; 87660; 99202; G0463

== ENCOUNTER 2018-08-22 17:23 | Emergency (ER) | payer MEDICARE ==
--- NOTE | 2018-08-22 17:42 | ED ---
HPI Chest Pain - HPI Summary HPI Summary: Pt is a 67 y/o F presenting to the ED brought in by EMS with a chief complaint of chest pain. EMS gave nitro and aspirin which helped alleviate the pain. Onset this past weekend, the pt has had a head cold, with associated cough, congestion, and head pressure. Yesterday, she had chest pressure which she thought was indigestion. Today, she went to [place] to get her cold checked out , and she notes waking up with low energy, fever, and chest tightness. EMS brought her here for the chest tightness. Pt generally reports weakness in her legs, chest pressure (middle anterior chest, L anterior chest, and back), easily lightheaded, fever, diaphoresis, decreased appetite, and dry cough. - History of Current Complaint Chief Complaint: EDChestPainROMI Time Seen by Provider: 08/22/18 17:35 Hx Obtained From: Patient Hx Last Menstrual Period: post menopause Onset/Duration: Started Days Ago, Still Present Timing: Constant, Lasting Hours Initial Severity: Mild Current Severity: Mild Pain Intensity: 3 Pain Scale Used: 0-10 Numeric Chest Pain Location: Mid Sternal, Left Anterior Chest Pain Radiates: Yes Chest Pain Radiates To:: Back Character: Tightness Aggravating Factor(s): Nothing Alleviating Factor(s): EMS Tx - NTG, aspirin Associated Signs and Symptoms: Positive: Chest Pain, Headaches, Weakness, Fever , Lightheadedness, Diaphoresis, Cough, Nonproductive Cough, Back Pain - Allergy/Home Medications Allergies/Adverse Reactions: Allergies Allergy/AdvReac Type Severity Reaction Status Date / Time Iodinated Contrast- Oral and Allergy Intermediate Hives Verified 07/14/18 14:09 IV Dye zolpidem AdvReac Severe "makes me Verified 07/14/18 14:09 sleep walk" PMH/Surg Hx/FS Hx/Imm Hx Previously Healthy: Yes Endocrine/Hematology History: Reports: Hx Diabetes - type2 Denies: Hx Thyroid Disease Cardiovascular History: Reports: Hx Hypertension Respiratory History: Denies: Hx Asthma, Hx Chronic Obstructive Pulmonary Disease (COPD) GI History: Denies: Hx Ulcer Musculoskeletal History: Reports: Hx Back Problems Psychiatric History: Reports: Hx Attention Deficit Hyperactivity Disorder - Cancer History Hx Chemotherapy: No Hx Radiation Therapy: No - Surgical History Surgery Procedure, Year, and Place: 3 BACK SURGERIES, HYSTERECTOMY, gallbladder Infectious Disease History: No Infectious Disease History: Denies: Hx Clostridium Difficile, Hx Hepatitis, Hx Human Immunodeficiency Virus (HIV), Hx of Known/Suspected MRSA, Hx Shingles, Hx Tuberculosis, Hx Known/ Suspected VRE, Hx Known/Suspected VRSA, History Other Infectious Disease, Traveled Outside the [place] in Last 30 Days - Family History Known Family History: Positive: Hypertension, Diabetes, Other - she thinks both her parents of cancer Family History: neither biological parent is alive. brother almost had an MS 4yrs ago. 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 Hx Tobacco Use: No Smoking Status (MU): Never Smoked Tobacco Review of Systems Positive: Fever, Skin Diaphoresis Positive: Chest Pain Positive: Cough Positive: Myalgia Positive: Headache, Weakness All Other Systems Reviewed And Are Negative: Yes Physical Exam - Summary Physical Exam Summary: Appearance: Well-appearing, Well-nourished, lying in bed comfortably Skin: Warm, dry, no obvious rash Eyes: sclera anicteric, no conjunctival pallor ENT: mucous membranes moist, pharynx appears normal Neck: Supple, nontender Respiratory: Clear to auscultation, no signs of respiratory distress Cardiovascular: Normal S1, S2. No murmurs. Normal distal pulses in tibial and radial bilaterally. Abdomen: Soft, nontender, normal active bowel sounds present Musculoskeletal: Normal, Strength/ROM Intact Neurological: A&Ox3, awake and alert, mentation is normal, speech is fluent and appropriate Psychiatric: affect is normal, does not appear anxious or depressed Triage Information Reviewed: Yes Vital Signs On Initial Exam: Initial Vitals Temp Pulse Resp BP Pulse Ox 98.0 F 93 16 177/98 98 08/22/18 17:27 08/22/18 17:27 08/22/18 17:27 08/22/18 17:27 08/22/18 17:27 Vital Signs Reviewed: Yes Diagnostics - Vital Signs Vital Signs Temp Pulse Resp BP Pulse Ox 08/22/18 17:27 98.0 F 93 16 177/98 98 - Laboratory Result Diagrams: 08/22/18 18:01 08/22/18 18:01 Lab Statement: Any lab studies that have been ordered have been reviewed, and results considered in the medical decision making process. - Radiology Chest x-ray Radiology Interpretation Completed By: Radiologist Summary of Radiographic Findings: No radiographic evidence of acute cardiopulmonary disease. ED physician has reviewed this report. - EKG 1731 Cardiac Rate: NL - 90bpm EKG Rhythm: Sinus Rhythm ST Segment: Normal Ectopy: None Chest Pain Course/Dx - Course Course Of Treatment: Pt is a 67 y/o F presenting to the ED brought in by EMS with a chief complaint of chest pain. EMS gave nitro and aspirin which helped alleviate the pain. Yesterday, she had chest pressure which she thought was indigestion. Today, she went to [place] to get her cold checked out, and she notes waking up with low energy, fever, and chest tightness. EMS brought her here for the chest tightness. Pt generally reports weakness in her legs, chest pressure (middle anterior chest, L anterior chest, and back), easily lightheaded , fever, diaphoresis, decreased appetite, and dry cough. EKG and CXR results were normal. Troponin was 0.00. The pt will be discharged home. Discharge - Sign-Out/Discharge Documenting (check all that apply): Patient Departure Patient Received Moderate/Deep Sedation with Procedure: No - Discharge Plan Condition: Stable Disposition: HOME Referrals: Cinthia Hedrick MD [Primary Care Provider] - - Attestation Statements Document Initiated by Benibe: Yes Documenting Scribe: Olga Hernandez Provider For Whom Kalee is Documenting (Include Credential): Michael Short MD. Scribe Attestation: Olga Cohen, johned for Michael Short MD. on 08/22/18 at [id number]. Status of Scribe Document: Ready
[2018-08-22 18:25] LABS: ABS Basophils 0 10^3/ul (0-0.2); ABS Eosinophils 0 10^3/ul (0-0.6); ABS Lymphocytes 2.1 10^3/ul (1.0-4.8); ABS Monocytes 0.7 10^3/ul (0-0.8); ABS Neutrophils 3.4 10^3/ul (1.5-7.7); ABS Nucleated RBC 0 10^3/ul; Eosinophil % 0.6 %; Hematocrit 39 % (35-47); Hemoglobin 12.7 g/dl (12.0-16.0); Mean Corpuscular HGB Conc 33 g/dl (31-36); Mean Corpuscular Hemoglobin 28 pg (27-31); Mean Corpuscular Volume 84 fL (80-97); Mean Platelet Volume 8.4 fL (7.4-10.4); Nucleated Red Blood Cells % 0; Platelet Count 264 10^3/ul (150-450); Red Blood Count 4.57 10^6/ul (4.00-5.40); Red Cell Distribution Width 14 % (10.5-15); White Blood Count 6.2 10^3/ul (3.5-10.8)
[2018-08-22 18:29] LABS: Albumin 4.6 g/dL (3.2-5.2); Calcium 9.4 mg/dL (8.6-10.3); Potassium 3.3 mmol/L (3.5-5.0); Total Bilirubin 0.2 mg/dL (0.2-1.0)
[2018-08-22 18:35] LABS: Albumin/Globulin Ratio 1.7 (1-3); BUN/Creatinine Ratio 19.6 (8-20); EGFR African American 44.4 (>60); EGFR Non-African American 36.7 (>60); Globulin 2.7 g/dL (2-4); Total Protein 7.3 g/dL (6.4-8.9)
[2018-08-22] MEDS ORDERED: Acetaminophen TAB* 325 MG PO ONE (19:25)
[2018-08-22] MEDS ORDERED: Acetaminophen TAB* 325 MG ONE (19:27)
[2018-08-22 21:43] VITALS: BP 174/98
== END 2018-08-22 21:42 | disposition home or self-care (01) ==
LOC: ED 17:23
DX: R07.89 Other chest pain (principal); R51 Headache; R53.1 Weakness; R50.9 Fever, unspecified; R42 Dizziness and giddiness; Z88.8 Allergy status to other drugs, medicaments and biological substances; Z91.041 Radiographic dye allergy status
CPT/HCPCS: 36415; 71046; 80053; 84484; 85025; 85379; 93005; 99283; A9270-GY

== ENCOUNTER 2018-12-08 13:21 | Emergency (ER) | payer MEDICARE ==
[2018-12-08 13:28] VITALS: BP 173/71
--- NOTE | 2018-12-08 13:44 | UC ---
Complaint Female HPI - HPI Summary HPI Summary: 68 y/o male presents to the urgent care c/o frequency and burning on urination for the past 4 days. symptoms worsen last night. She took 2 Azo tabs around 2100pm and then another 2 tabs around 0300AM to alleviate symptoms. Burning on urination is 8/10 associated w/ bladder pressure. She saw this morning mild hematuria. She has UTI on 07/2018 and was seen here at the clinic. She has been w/ a lot of emotion stress since his father has a terminal illness. Pt denies fever, lower back pain, flank pain, abdominal pain, vaginal discharge, N/V/D, MÁRQUEZ , SOB, chest pain, visual changes. - History Of Current Complaint Chief Complaint: UCGU Stated Complaint: UTI Time Seen by Provider: 12/08/18 13:42 Hx Obtained From: Patient Hx Last Menstrual Period: post menopause Onset/Duration: Gradual Onset, Lasting Days - 4 days, Still Present, Worse Since - last night Timing: Intermittent, Lasting Seconds Severity Initially: Mild Severity Currently: Moderate Pain Intensity: 8 Pain Scale Used: 0-10 Numeric Character: Burning Aggravating Factor(s): Urination Alleviating Factor(s): Other - Azo OTC she took since last night Associated Signs And Symptoms: Positive: Negative. Negative: Fever, Back Pain, Vaginal Bleeding/Discharge, Vaginal Discharge, Genital Swelling, Genital Blisters Related Hx: Similar Episode/Dx as: - UTI in 07/2018 - Risk Factors Ectopic Risk Factor: Negative - Allergies/Home Medications Allergies/Adverse Reactions: Allergies Allergy/AdvReac Type Severity Reaction Status Date / Time Iodinated Contrast- Oral and Allergy Intermediate Hives Verified 12/08/18 13:28 IV Dye zolpidem AdvReac Severe "makes me Verified 12/08/18 13:28 sleep walk" PMH/Surg Hx/FS Hx/Imm Hx Previously Healthy: Yes Endocrine History: Diabetes, Dyslipidemia Cardiovascular History: Hypertension - Surgical History Surgical History: Yes Surgery Procedure, Year, and Place: 3 BACK SURGERIES, HYSTERECTOMY, gallbladder - Family History Known Family History: Positive: Hypertension, Diabetes, Other - she thinks both her parents of cancer Family History: neither biological parent is alive. brother almost had an DC 4yrs ago. 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 Smoking Status (MU): Never Smoked Tobacco Review of Systems All Other Systems Reviewed And Are Negative: Yes Constitutional: Positive: Negative Skin: Positive: Negative Eyes: Positive: Negative ENT: Positive: Negative Respiratory: Positive: Negative Cardiovascular: Positive: Negative Gastrointestinal: Positive: Negative Genitourinary: Positive: Dysuria, Hematuria, Frequency, Urgency Motor: Positive: Negative Neurovascular: Positive: Negative Musculoskeletal: Positive: Negative Neurological: Positive: Negative Psychological: Positive: Negative Is Patient Immunocompromised?: No Physical Exam - Summary Physical Exam Summary: VITAL SIGNS: Reviewed. GENERAL: Patient is a well developed and nourished female who is sitting comfortable in the examining table. Patient is not in any acute respiratory distress. HEAD AND FACE: No signs of trauma. No ecchymosis, hematomas or skull depressions. No sinus tenderness. EYES: PERRLA, EOMI x 2, No injected conjunctiva, clear watery eyes, no nystagmus. No photophobia. EARS: Hearing grossly intact. Ear canals and tympanic membranes are within normal limits. MOUTH: pharynx with no erythema, no exudates,no palatal petechiae. no B/L tonsillar enlargement Uvula in midline. NECK: Supple, trachea is midline, no lymphadenopathy, no JVD, no carotid bruit, no c-spine tenderness, neck with full ROM. CHEST: Symmetric, no tenderness at palpation LUNGS: Clear to auscultation bilaterally. No wheezing or crackles. CVS: Regular rate and rhythm, S1 and S2 present, no murmurs or gallops appreciated. ABDOMEN: Soft, non-tender. No signs of distention. No rebound no guarding, and no masses palpated. Bowel sounds are normal. BACK:no scoliosis or lesions, non tender to palpation, No B/L CVA tenderness EXTREMITIES: FROM in all major joints, no edema, no cyanosis or clubbing. NEURO: Alert and oriented x 3. No acute neurological deficits. Speech is normal and follows commands. SKIN: Dry and warm Triage Information Reviewed: Yes Vital Signs: Initial Vital Signs Temp 98.8 F 12/08/18 13:25 Pulse 99 12/08/18 13:25 Resp 18 12/08/18 13:25 BP 173/71 12/08/18 13:25 Pulse Ox 100 12/08/18 13:25 Complaint Female Dx - Course Course Of Treatment: 68 y/o male presents to the urgent care c/o frequency and burning on urination for the past 4 days. symptoms worsen last night. She took 2 Azo tabs around 2100pm and then another 2 tabs around 0300AM to alleviate symptoms. Burning on urination is 8/10 associated w/ bladder pressure. She saw this morning mild hematuria. She has UTI on 07/2018 and was seen here at the clinic. She has been w/ a lot of emotion stress since his father has a terminal illness. Pt denies fever, lower back pain, flank pain, abdominal pain, vaginal discharge, N/V/D, MÁRQUEZ , SOB, chest pain, visual changes. Hx obtained. PE:WNL, Pt has already taken 4 tabs of AZO OTC since last night, unable to perfome UA here. Urine will be sent fr urine culture to r/o any abnormality. Pt explained. Pt Rx Keflex PO and Pyridium PO to alleviate symptoms. Advised to increase fluid intake. Urine sent for culture if any abnormality Pt will be notified for further treatment. Pt advised If symptoms do not improve to return to the urgent care or f/u with PCP for further management. Pt's BP is elevated today advised to decrease salt in diet, monitor BP and f/u with PCP for further management. Pt understood and agreed. Left the clinic ambulating. - Differential Dx/Diagnosis Differential Diagnosis/HQI/PQRI: Cervicitis, Pelvic Inflammatory Disease, Renal Colic, Ureteral Stone, Urinary Tract Infection Provider Diagnosis: Dysuria, Uncontrolled hypertension Discharge - Sign-Out/Discharge Documenting (check all that apply): Patient Departure - D/C home All imaging exams completed and their final reports reviewed: No Studies - Discharge Plan Condition: Stable Disposition: HOME Prescriptions: Cephalexin CAP* [Keflex CAP*] 500 mg PO TID #14 cap Phenazopyridine TAB* [Pyridium 100 mg TAB*] 100 mg PO TID #6 tab Patient Education Materials: Urinary Tract Infection in Women (ED) Referrals: Cinthia Hedrick MD [Primary Care Provider] - 3 Days Additional Instructions: 1- Please take Keflex PO x 7 days. Pyridium 100 mg PO TID x 2 days to alleviate urinary symptoms. Increase increase fluid intake. drink cranberry juice. 2-Urine sent for culture if any abnormality, you will be notified for further treatment. 3-If symptoms do not improve please return to the urgent care or f/u with PCP in 3 days for further management in your symptoms. 4-Your BP is elevated today. Please take your BP medications and decrease salt in your diet, monitor BP and if it continues to be elevated please f/u with your PCP for further management. If you develop chest pain, dizziness, visual disturbances, SOB, or severe MÁRQUEZ please go immediately to the ER for further management - Billing Disposition and Condition Condition: STABLE Disposition: Home
== END 2018-12-08 14:00 | disposition home or self-care (01) ==
LOC: UCEAST 13:21
DX: R30.0 Dysuria (principal); I10 Essential (primary) hypertension; Z87.440 Personal history of urinary (tract) infections
CPT/HCPCS: 87077; 87086; 87186; 99212; G0463

== ENCOUNTER 2019-04-24 09:17 | Emergency (ER) | payer MEDICARE ==
[2019-04-24] MEDS ORDERED: HYDROcodone/ACETAMIN 5-325 MG* 1 TAB PO ONE (09:55)
--- NOTE | 2019-04-24 10:08 | ED ---
Back Pain - HPI Summary HPI Summary: Pt is a 68 y/o F presenting to the ED with a chief complaint of L-sided flank pain initially onset last night. The pain has been steady since 1600 yesterday, just around where her left kidney should be, and is accompanied by abdominal bloating. The pain is intermittent in severity, and shes been slightly nauseous. She denies dysuria, hematuria, fever, vomiting, diarrhea, or constipation. She took 800mg IBU [employer]. - History of Current Complaint Chief Complaint: EDFlankPain Stated Complaint: LEFT SIDED FLANK PAIN PER PT Time Seen by Provider: 04/24/19 09:31 Hx Obtained From: Patient Hx Last Menstrual Period: post menopause Onset/Duration: Gradual Onset, Lasting Hours, Still Present Onset/Duration: Started Hours Ago, Still Present Timing: Constant, Lasting Hours Back Pain Location: Is Discrete @ - L flank Severity Initially: Moderate Severity Currently: Severe Pain Intensity: 9 Pain Scale Used: 0-10 Numeric Aggravating Symptom(s): Nothing Alleviating Symptom(s): Nothing Associated Signs And Symptoms: Positive: Abdominal Pain - bloating, Flank Pain. Negative: Fever - Allergies/Home Medications Allergies/Adverse Reactions: Allergies Allergy/AdvReac Type Severity Reaction Status Date / Time Iodinated Contrast Media Allergy Intermediate Hives Verified 01/30/19 14:20 [Iodinated Contrast- Oral and IV Dye] zolpidem AdvReac Severe "makes me Verified 01/30/19 14:20 sleep walk" PMH/Surg Hx/FS Hx/Imm Hx Previously Healthy: Yes Endocrine/Hematology History: Reports: Hx Diabetes - type2 Denies: Hx Thyroid Disease Cardiovascular History: Reports: Hx Hypertension Respiratory History: Denies: Hx Asthma, Hx Chronic Obstructive Pulmonary Disease (COPD) GI History: Denies: Hx Ulcer Musculoskeletal History: Reports: Hx Back Problems, Other Musculoskeletal History - chronic back pain Psychiatric History: Reports: Hx Attention Deficit Hyperactivity Disorder - Cancer History Hx Chemotherapy: No Hx Radiation Therapy: No - Surgical History Surgery Procedure, Year, and Place: 3 BACK SURGERIES, HYSTERECTOMY, gallbladder Infectious Disease History: No Infectious Disease History: Denies: Hx Clostridium Difficile, Hx Hepatitis, Hx Human Immunodeficiency Virus (HIV), Hx of Known/Suspected MRSA, Hx Shingles, Hx Tuberculosis, Hx Known/ Suspected VRE, Hx Known/Suspected VRSA, History Other Infectious Disease, Traveled Outside the [place] in Last 30 Days - Family History Known Family History: Positive: Hypertension, Diabetes, Other - she thinks both her parents of cancer Family History: neither biological parent is alive. brother almost had an MN 4yrs ago. 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 Negative: Vomiting, Diarrhea, Other - constipation Positive: flank pain. Negative: dysuria, hematuria All Other Systems Reviewed And Are Negative: Yes Physical Exam - Summary Physical Exam Summary: Constitutional: Well-developed, Well-nourished, Alert. Mildly distressed Skin: Warm, Dry HENT: Normocephalic; Atraumatic Eyes: Conjunctiva normal Neck: Musculoskeletal ROM normal neck. (-) JVD, (-) Stridor, (-) Tracheal deviation Cardio: Rhythm regular, rate normal, Heart sounds normal; Intact distal pulses; Radial pulses are 2+ and symmetric. (-) Murmur Pulmonary/Chest wall: Effort normal. (-) Respiratory distress, (-) Wheezes, (-) Rales Abd: Soft, (-) tenderness, (-) Distension, (-) Guarding, (-) Rebound Musculoskeletal: (-) Edema. L flank tenderness Lymph: (-) Cervical adenopathy Neuro: Alert, Oriented x3 Psych: Mood and affect Normal Triage Information Reviewed: Yes Vital Signs On Initial Exam: Initial Vitals Temp Pulse Resp BP Pulse Ox 97.8 F 71 18 196/90 99 04/24/19 09:18 04/24/19 09:18 04/24/19 09:18 04/24/19 09:18 04/24/19 09:18 Vital Signs Reviewed: Yes Procedures - Sedation Patient Received Moderate/Deep Sedation with Procedure: No Diagnostics - Vital Signs Vital Signs Temp Pulse Resp BP Pulse Ox 04/24/19 09:18 97.8 F 71 18 196/90 99 - Laboratory Result Diagrams: 04/24/19 10:25 04/24/19 10:25 Lab Statement: Any lab studies that have been ordered have been reviewed, and results considered in the medical decision making process. - CT CT a/p CT Interpretation Completed By: Radiologist Summary of CT Findings: No hydronephrosis or nephrolithiasis. ED physician has reviewed this report. Back Pain Course/Dx - Course Course Of Treatment: Patient is here with pain in her left flank is worse with movement. Patient does have a history kidney stones and thinks this feels a kidney stone. Patient a CT scan showed no evidence of nephrolithiasis or AAA. Patient had laboratory performed which is grossly unremarkable. Patient had negative UA for UTI or hematuria. Patient was discharged with musculoskeletal treatment modalities including Flexeril and lidocaine patches - Diagnoses Provider Diagnoses: Left low back pain Discharge ED - Sign-Out/Discharge Documenting (check all that apply): Patient Departure - Discharge Plan Condition: Stable Disposition: HOME Prescriptions: Cyclobenzaprine TAB* [Flexeril 10 MG TAB*] 10 mg PO BID PRN #12 tab PRN Reason: muscle spasm Lidocaine PATCH 5%* [Lidoderm 5% Patch*] 1 patch TRANSDERM DAILY 7 Days #7 patch Patient Education Materials: Back Pain (ED) Forms: *Work Release Referrals: Cinthia Hedrick MD [Primary Care Provider] - Additional Instructions: Please continue taking your Ibuprofen 800mg every 8 hours. Use heat on your back as needed, the lidocaine patches, and take your Flexeril as instructed. Come back to the emergency department with any new or worsening symptoms. - Billing Disposition and Condition Condition: STABLE Disposition: Home - Attestation Statements Document Initiated by Kalee: Yes Documenting Scribe: Olga Hernandez Provider For Whom Kalee is Documenting (Include Credential): Nima Bustamante MD. Scribe Attestation: Olga Cohen, scribed for Nima Bustamante MD. on 04/24/19 at 1159. Scribe Documentation Reviewed: Yes Provider Attestation: The documentation as recorded by the Olga hawk accurately reflects the service I personally performed and the decisions made by , Nima Bustamante MD. Status of Scribe Document: Viewed
[2019-04-24 10:19] LABS: Urine Appearance Clear; Urine Bilirubin Negative (Negative); Urine Blood Negative (Negative); Urine Color Yellow; Urine Glucose Negative (Negative); Urine Ketones Negative (Negative); Urine Nitrite Negative (Negative); Urine Protein Negative (Negative); Urine Specific Gravity 1.023 (1.010-1.030); Urine Urobilinogen Negative (Negative)
[2019-04-24 10:36] LABS: ABS Basophils 0.1 10^3/ul (0-0.2); ABS Eosinophils 0.3 10^3/ul (0-0.6); ABS Lymphocytes 2.2 10^3/ul (1.0-4.8); ABS Monocytes 0.6 10^3/ul (0-0.8); ABS Neutrophils 3.9 10^3/ul (1.5-7.7); Eosinophil % 4.8 %; Hematocrit 39 % (35-47); Hemoglobin 12.8 g/dL (12.0-16.0); Lymphocyte % 30.8 %; Mean Corpuscular HGB Conc 33 g/dL (31-36); Mean Corpuscular Hemoglobin 28 pg (27-31); Mean Corpuscular Volume 85 fL (80-97); Mean Platelet Volume 7.9 fL (7.4-10.4); Platelet Count 248 10^3/uL (150-450); Red Blood Count 4.57 10^6 /uL (3.70-4.87); Red Cell Distribution Width 15 % (10-15); White Blood Count 7.1 10^3/uL (3.5-10.8)
[2019-04-24 10:51] LABS: BUN/Creatinine Ratio 23.6 (8-20); Calcium 9.5 mg/dL (8.6-10.3); EGFR African American 59.9 (>60); EGFR Non-African American 49.5 (>60); Potassium 4.2 mmol/L (3.5-5.0)
[2019-04-24 11:07] VITALS: BP 172/108
== END 2019-04-24 11:07 | disposition home or self-care (01) ==
LOC: ED 09:17
DX: M54.5 Low back pain (principal); E11.9 Type 2 diabetes mellitus without complications; I10 Essential (primary) hypertension; F90.9 Attention-deficit hyperactivity disorder, unspecified type; Z90.710 Acquired absence of both cervix and uterus; Z88.8 Allergy status to other drugs, medicaments and biological substances; Z91.041 Radiographic dye allergy status; Z79.84 Long term (current) use of oral hypoglycemic drugs; Z79.899 Other long term (current) drug therapy
CPT/HCPCS: 36415; 74176; 80048; 81003; 85025; 99282

== ENCOUNTER 2019-11-04 15:05 | Emergency (ER) | payer MEDICARE ==
[2019-11-04] MEDS ORDERED: Diazepam INJ CARPUJECT 5 MG/ML IV ONE ×3 (15:50→17:54)
[2019-11-04 16:00] LABS: ABS Eosinophils 0.2 10^3/ul (0-0.6); ABS Lymphocytes 2.5 10^3/ul (1.0-4.8); ABS Monocytes 0.4 10^3/ul (0-0.8); Eosinophil % 2.6 %; Hematocrit 39 % (35-47); Hemoglobin 13.4 g/dL (12.0-16.0); Lymphocyte % 29.8 %; Mean Corpuscular HGB Conc 34 g/dL (31-36); Mean Corpuscular Hemoglobin 29 pg (27-31); Mean Corpuscular Volume 85 fL (80-97); Mean Platelet Volume 8.2 fL (7.4-10.4); Platelet Count 215 10^3/uL (150-450); Red Blood Count 4.61 10^6 /uL (3.70-4.87); Red Cell Distribution Width 13 % (10-15); White Blood Count 8.4 10^3/uL (3.5-10.8)
[2019-11-04 16:37] LABS: ALT 19 U/L (7-52); Albumin 4.3 g/dL (3.2-5.2); Albumin/Globulin Ratio 1.8 (1-3); Alkaline Phosphatase 96 U/L (34-104); BUN/Creatinine Ratio 22.4 (8-20); Blood Urea Nitrogen 22 mg/dL (6-24); C Reactive Protein 3.18 mg/L (<8.01); CO2 Carbon Dioxide 23 mmol/L (22-32); Calcium 9.5 mg/dL (8.6-10.3); Chloride 108 mmol/L (101-111); EGFR African American 68.3 (>60); EGFR Non-African American 56.4 (>60); Globulin 2.4 g/dL (2-4); Glucose 128 mg/dL (70-100); Sodium 139 mmol/L (135-145); Total Protein 6.7 g/dL (6.4-8.9)
[2019-11-04 16:39] LABS: Anion Gap 8 mmol/L (2-11)
[2019-11-04 19:22] VITALS: BP 229/110
== END 2019-11-04 19:19 | disposition home or self-care (01) ==
LOC: ED 15:05

== ENCOUNTER 2021-09-21 13:29 | Inpatient (IN) ==
[2021-09-21] MEDS ORDERED: NS 0.9% 1000 ml BAG 1,000 ML IV ONE ×2 (14:07→16:35)
[2021-09-21] MEDS ORDERED: Ondansetron 4 mg VIAL 2 MG/ML 2 ml VIAL IV ONE ×2 (14:09→17:12)
[2021-09-21 15:13] LABS: ABS Lymphocytes 1.1 10^3/ul (1.0-4.8); ABS Monocytes 0.8 10^3/ul (0-0.8); Eosinophil % 0.2 %; Hematocrit 50 % (35-47); Hemoglobin 16.8 g/dL (12.0-16.0); Lymphocyte % 6.6 %; Mean Corpuscular HGB Conc 34 g/dL (31-36); Mean Corpuscular Hemoglobin 28 pg (27-31); Mean Corpuscular Volume 84 fL (80-97); Mean Platelet Volume 8.8 fL (7.4-10.4); Platelet Count 298 10^3/uL (150-450); Red Cell Distribution Width 13 % (10-15)
[2021-09-21 15:31] LABS: INR 1.02 (0.86-1.15)
[2021-09-21 15:47] LABS: Albumin 5.2 g/dL (3.2-5.2); Albumin/Globulin Ratio 1.9 (1-3); Calcium 10.9 mg/dL (8.6-10.3); Globulin 2.8 g/dL (2-4); Magnesium 2.1 mg/dL (1.9-2.7); Potassium 3.9 mmol/L (3.5-5.0); Total Bilirubin 1.1 mg/dL (0.2-1.0); eGFR CKD-EPI 35.5 (>60)
[2021-09-21] MEDS ORDERED: diPHENhydraMINE IV 50 MG/ML 1 ml VIAL (BENADRYL) IV ONE (16:15)
[2021-09-21] MEDS ORDERED: Dexamethasone IV 4 MG/ML VIAL 1 ml VIAL IV SLOW PU ONE (16:16)
[2021-09-21] MEDS ORDERED: Iodixanol (CONTRAST) 320 MG/ML 100 ML SDV IV ONE (16:18)
[2021-09-21 16:46] LABS: High Sensitivity Troponin 1 Hr 7 pg/mL (<15)
[2021-09-21] MEDS ORDERED: Ondansetron 4 mg VIAL 2 MG/ML 2 ml VIAL ONE (17:13)
[2021-09-21] MEDS ORDERED: Morphine 4 MG/ML VIAL (1 ml) ONE (17:13)
[2021-09-21] MEDS ORDERED: metroNIDAZOLE IV 500 MG/100ML 500 MG/100 ML BAG IVPB ONE (18:41)
[2021-09-21] MEDS ORDERED: Ciprofloxacin 400mg IVPREMIX 400 MG/200 ML BAG IVPB ONE (18:41)
[2021-09-21] MEDS ORDERED: Lactated Ringers 1000 ml BAG 1,000 ML IV ONE (20:03)
[2021-09-21] MEDS ORDERED: Dextrose 50% Syringe 50 ml 25 GM/50 ML SYRINGE IV PUSH PRN (20:08)
[2021-09-21] MEDS ORDERED: Labetalol IV 5 MG/ML 20 ml VIAL IV PUSH PRN (20:12)
[2021-09-21] MEDS ORDERED: Lactated Ringers 1000 ml BAG 1,000 ML IV SCH (21:00)
[2021-09-21 21:30] LABS: Urine Appearance Clear; Urine Bilirubin Negative (Negative); Urine Blood Negative (Negative); Urine Color Straw; Urine Glucose 3+(>=500 mg/dL) (Negative); Urine Ketones Negative (Negative); Urine Nitrite Negative (Negative); Urine Protein Negative (Negative); Urine Specific Gravity 1.022 (1.002-1.030); Urine Urobilinogen Negative (Negative)
[2021-09-21] MEDS: Heparin 5000 UNITS/ML 1 mL VIAL SUBCUT SCH (23:04)
[2021-09-22] MEDS: Morphine 4 MG/ML VIAL (1 ml) IV PRN ×7 (01:19→22:18)
[2021-09-22] MEDS: Azithromycin 500 mg/250 ml NS 500 MG/250 ML BAG IVPB SCH (05:44)
[2021-09-22] MEDS: Heparin 5000 UNITS/ML 1 mL VIAL SUBCUT SCH ×3 (05:53→22:21)
[2021-09-22 06:02] LABS: ABS Lymphocytes 0.4 10^3/ul (1.0-4.8); ABS Monocytes 0.3 10^3/ul (0-0.8); Hematocrit 39 % (35-47); Hemoglobin 13.1 g/dL (12.0-16.0); Lymphocyte % 4.5 %; Mean Corpuscular HGB Conc 34 g/dL (31-36); Mean Corpuscular Hemoglobin 29 pg (27-31); Mean Corpuscular Volume 84 fL (80-97); Mean Platelet Volume 8.5 fL (7.4-10.4); Platelet Count 215 10^3/uL (150-450); Red Cell Distribution Width 13 % (10-15); White Blood Count 8.7 10^3/uL (3.5-10.8)
[2021-09-22 06:32] LABS: Albumin 3.8 g/dL (3.2-5.2); Globulin 1.9 g/dL (2-4); Potassium 4.1 mmol/L (3.5-5.0); Total Bilirubin 0.8 mg/dL (0.2-1.0); Total Protein 5.7 g/dL (6.4-8.9); eGFR CKD-EPI 56.9 (>60)
[2021-09-22] MEDS ORDERED: Morphine 4 MG/ML VIAL (1 ml) IV PRN (08:44)
[2021-09-22] MEDS ORDERED: Acetaminophen IV 1 GM/100ML 100 ML IV PRN (08:46)
[2021-09-22] MEDS: Ondansetron 4 mg VIAL 2 MG/ML 2 ml VIAL IV PRN (09:17)
[2021-09-22] MEDS: Al Hydrox/Mg Hydrox/Simet LIQ 30 ML UDC PO PRN (09:52)
[2021-09-22] MEDS ORDERED: Labetalol IV 5 MG/ML 20 ml VIAL IV PUSH PRN (13:04)
[2021-09-22] MEDS: Lactated Ringers 1000 ml BAG 1,000 ML IV SCH (17:46)
[2021-09-23] MEDS: Lactated Ringers 1000 ml BAG 1,000 ML IV SCH ×3 (00:41→19:45)
[2021-09-23] MEDS: Morphine 4 MG/ML VIAL (1 ml) IV PRN ×6 (01:09→22:11)
[2021-09-23] MEDS: Azithromycin 500 mg/250 ml NS 500 MG/250 ML BAG IVPB SCH (05:36)
[2021-09-23] MEDS: Heparin 5000 UNITS/ML 1 mL VIAL SUBCUT SCH ×3 (05:37→20:06)
[2021-09-23] MEDS: Al Hydrox/Mg Hydrox/Simet LIQ 30 ML UDC PO PRN ×2 (05:41→20:06)
[2021-09-23] MEDS: Ondansetron 4 mg VIAL 2 MG/ML 2 ml VIAL IV PRN (08:23)
[2021-09-23 08:52] LABS: ABS Eosinophils 0.1 10^3/ul (0-0.6); ABS Lymphocytes 2.4 10^3/ul (1.0-4.8); ABS Monocytes 0.6 10^3/ul (0-0.8); ABS Neutrophils 3.1 10^3/ul (1.5-7.7); Eosinophil % 1.7 %; Hematocrit 35 % (35-47); Hemoglobin 11.9 g/dL (12.0-16.0); Lymphocyte % 37.9 %; Mean Corpuscular HGB Conc 35 g/dL (31-36); Mean Corpuscular Hemoglobin 29 pg (27-31); Mean Corpuscular Volume 83 fL (80-97); Mean Platelet Volume 8.1 fL (7.4-10.4); Nucleated Red Blood Cells % 0.1; Platelet Count 193 10^3/uL (150-450); Red Blood Count 4.15 10^6 /uL (3.70-4.87); Red Cell Distribution Width 13 % (10-15); White Blood Count 6.3 10^3/uL (3.5-10.8)
[2021-09-23 09:27] LABS: Calcium 8.7 mg/dL (8.6-10.3); Magnesium 1.9 mg/dL (1.9-2.7); Potassium 3.6 mmol/L (3.5-5.0); eGFR CKD-EPI 67.4 (>60)
[2021-09-23 09:40] LABS: Albumin 3.4 g/dL (3.2-5.2); Albumin/Globulin Ratio 1.8 (1-3); Globulin 1.9 g/dL (2-4); Total Bilirubin 0.4 mg/dL (0.2-1.0); Total Protein 5.3 g/dL (6.4-8.9)
[2021-09-24] MEDS: Lactated Ringers 1000 ml BAG 1,000 ML IV SCH ×2 (02:31→19:36)
[2021-09-24] MEDS: Azithromycin 500 mg/250 ml NS 500 MG/250 ML BAG IVPB SCH (04:42)
[2021-09-24] MEDS: Heparin 5000 UNITS/ML 1 mL VIAL SUBCUT SCH ×3 (04:42→21:19)
[2021-09-24] MEDS: Morphine 4 MG/ML VIAL (1 ml) IV PRN ×3 (04:47→21:20)
[2021-09-24] MEDS: Ondansetron 4 mg VIAL 2 MG/ML 2 ml VIAL IV PRN ×2 (05:16→21:21)
[2021-09-24 06:13] LABS: ABS Eosinophils 0.1 10^3/ul (0-0.6); ABS Lymphocytes 2.2 10^3/ul (1.0-4.8); ABS Monocytes 0.5 10^3/ul (0-0.8); ABS Neutrophils 2.4 10^3/ul (1.5-7.7); Eosinophil % 2.3 %; Hematocrit 34 % (35-47); Hemoglobin 11.5 g/dL (12.0-16.0); Lymphocyte % 42.1 %; Mean Corpuscular HGB Conc 34 g/dL (31-36); Mean Corpuscular Hemoglobin 29 pg (27-31); Mean Corpuscular Volume 84 fL (80-97); Mean Platelet Volume 8.1 fL (7.4-10.4); Platelet Count 185 10^3/uL (150-450); Red Blood Count 4.01 10^6 /uL (3.70-4.87); Red Cell Distribution Width 13 % (10-15); White Blood Count 5.3 10^3/uL (3.5-10.8)
[2021-09-24 06:23] LABS: Calcium 8.2 mg/dL (8.6-10.3); Potassium 3.4 mmol/L (3.5-5.0); eGFR CKD-EPI 71.1 (>60)
[2021-09-24] MEDS ORDERED: Potassium Chlor 20 meq TAB.ER PO ONE ×2 (07:20→09:00)
[2021-09-24] MEDS: KCL 20 MEQ/100 ML IVPREMIX 20 MEQ/100 ML BAG IV SCH ×2 (09:04→12:08)
[2021-09-24] MEDS: Al Hydrox/Mg Hydrox/Simet LIQ 30 ML UDC PO PRN (19:36)
[2021-09-25] MEDS: Lactated Ringers 1000 ml BAG 1,000 ML IV SCH (01:50)
[2021-09-25] MEDS: Ondansetron 4 mg VIAL 2 MG/ML 2 ml VIAL IV PRN (03:24)
[2021-09-25] MEDS: Morphine 4 MG/ML VIAL (1 ml) IV PRN (03:24)
[2021-09-25] MEDS: Heparin 5000 UNITS/ML 1 mL VIAL SUBCUT SCH ×3 (05:26→21:01)
[2021-09-25 11:15] LABS: Calcium 8.7 mg/dL (8.6-10.3); Potassium 3.6 mmol/L (3.5-5.0); eGFR CKD-EPI 65.7 (>60)
[2021-09-25] MEDS: Al Hydrox/Mg Hydrox/Simet LIQ 30 ML UDC PO PRN (19:37)
[2021-09-26] MEDS: Heparin 5000 UNITS/ML 1 mL VIAL SUBCUT SCH (05:11)
[2021-09-26 10:16] LABS: Calcium 9.4 mg/dL (8.6-10.3); Potassium 3.7 mmol/L (3.5-5.0); eGFR CKD-EPI 69.2 (>60)
[2021-09-26 11:14] VITALS: BP 144/62
== END 2021-09-26 12:10 | disposition home or self-care (01) | DRG 872 ==
LOC: ED 13:29 → EDHOLD 20:05 → SUATTDRO 20:05 → MED 21:46
PROVIDERS: ADMIT Hospitalist; ATTEND Internal Medicine

== ENCOUNTER 2022-11-10 12:00 | Inpatient (IN) ==
[2022-11-10] MEDS ORDERED: Ondansetron 4 mg VIAL 2 MG/ML 2 ml VIAL IV ONE (13:04)
[2022-11-10] MEDS ORDERED: Morphine 4 MG/ML VIAL (1 ml) IV ONE ×2 (13:04→14:24)
[2022-11-10 13:26] LABS: Hematocrit 45.3 % (35-45); Hemoglobin 14.4 g/dL (11.5-14.3); Mean Corpuscular Hemoglobin 27.6 pg (27-33); Mean Corpuscular Hgb Conc 31.8 g/dL (31-36); Mean Corpuscular Volume 86.8 fL (80-97); Mean Platelet Volume 9.7 fL (7.5-11.2); Platelet Count 349 10^3/uL (150-450); Red Blood Count 5.22 10^6/uL (3.63-4.92); Red Cell Distribution Width 13.6 % (12-17); White Blood Count 21.8 10^3/uL (3.8-11.8)
[2022-11-10 13:38] LABS: INR 1.06 (0.88-1.18)
[2022-11-10 14:13] LABS: ALT 18 U/L (7-52); Albumin/Globulin Ratio 1.7 (1-3); Alkaline Phosphatase 158 U/L (35-149); Blood Urea Nitrogen 48 mg/dL (6-24); Calcium 9.4 mg/dL (8.6-10.3); Chloride 94 mmol/L (101-111); Creatinine, Serum 1.86 mg/dL (0.51-0.95); Globulin 2.4 g/dL (2-4); Lipase 243 U/L (11.0-82.0); Sodium 127 mmol/L (135-145); Total Protein 6.4 g/dL (6.4-8.9); eGFR CKD-EPI 28.6 (>60)
[2022-11-10] MEDS ORDERED: NS 0.9% 1000 ml BAG 1,000 ML IV ONE (14:24)
[2022-11-10] MEDS ORDERED: metroNIDAZOLE IV 500 MG/100ML 500 MG/100 ML BAG IVPB ONE (14:28)
[2022-11-10] MEDS ORDERED: cefTRIAXone 1 gm/50 mL D5W 1 GM/50 ML BAG IV ONE (14:28)
[2022-11-10 14:34] LABS: ABS Basophils 0.1 10^3/uL (0.0-0.1); ABS Eosinophils 0.1 10^3/uL (0.0-0.5); ABS Lymphocytes 0.7 10^3/uL (1.0-4.8); ABS Monocytes 1.6 10^3/uL (0.0-0.9); ABS Neutrophils 19.3 10^3/uL (1.5-7.6); ABS Nucleated RBC 0.01 10^3/ul; Anion Gap 23 mmol/L (2-16); CO2 Carbon Dioxide 10 mmol/L (22-32); Eosinophil % 0.6 %; Glucose 805 mg/dL (70-100)
[2022-11-10] MEDS ORDERED: Insulin Infusion 100unit/100mL 100 UNIT/100 ML BAG IV SCH (15:00)
[2022-11-10] MEDS ORDERED: Dextrose 50% Syringe 50 ml 25 GM/50 ML SYRINGE IV PUSH PRN ×2 (15:24→22:54)
[2022-11-10 15:35] LABS: Potassium Redraw 3.7 mmol/L (3.5-5.0)
[2022-11-10 16:04] LABS: PCO2 Arterial 20 mmHg (35-45); PO2 Arterial 100 mmHg (80-100)
[2022-11-10] MEDS ORDERED: HYDROmorphone 1 MG/1 ML SYRINGE IV SLOW PU PRN (16:26)
[2022-11-10] MEDS ORDERED: HYDROmorphone 0.5 MG/0.5 ML SYRINGE IV SLOW PU PRN (16:26)
[2022-11-10 16:41] LABS: ABS Basophils 0.1 10^3/uL (0.0-0.1); ABS Lymphocytes 0.9 10^3/uL (1.0-4.8); ABS Monocytes 0.6 10^3/uL (0.0-0.9); Eosinophil % 0.2 %; Hematocrit 42.8 % (35-45); Hemoglobin 13.9 g/dL (11.5-14.3); Mean Corpuscular Hgb Conc 32.6 g/dL (31-36); Mean Corpuscular Volume 85.8 fL (80-97); Mean Platelet Volume 9.3 fL (7.5-11.2); Platelet Count 322 10^3/uL (150-450); Red Blood Count 4.99 10^6/uL (3.63-4.92); Red Cell Distribution Width 13.7 % (12-17); White Blood Count 17.6 10^3/uL (3.8-11.8)
[2022-11-10] MEDS ORDERED: Lactated Ringers 1000 ml BAG 1,000 ML IV SCH (17:00)
[2022-11-10 17:04] LABS: High Sens Troponin Baseline 20 pg/mL (<15)
[2022-11-10] MEDS ORDERED: Bupivacaine 0.25% SDV 30 ML ONE (17:05)
[2022-11-10] MEDS ORDERED: Rocuronium 50 mg VIAL 10 mg/ml 5 ml VIAL (50 mg) ONE ×2 (17:08→17:57)
[2022-11-10] MEDS ORDERED: Midazolam 5 mg/5 ml VIAL 1 mg/ml 5 ml VIAL (5 mg) ONE (17:09)
[2022-11-10] MEDS ORDERED: Phenylephrine 40 mcg/mL 10mL (400mcg) SYRINGE ONE (17:09)
[2022-11-10 17:27] LABS: ALT 20 U/L (7-52); Albumin/Globulin Ratio 1.5 (1-3); Alkaline Phosphatase 139 U/L (35-149); Blood Urea Nitrogen 49 mg/dL (6-24); Chloride 103 mmol/L (101-111); Creatine Kinase 99 U/L (10-223); Creatinine, Serum 1.98 mg/dL (0.51-0.95); Globulin 2.7 g/dL (2-4); Sodium 133 mmol/L (135-145); Total Protein 6.7 g/dL (6.4-8.9); eGFR CKD-EPI 26.5 (>60)
[2022-11-10 17:32] LABS: CO2 Carbon Dioxide 11 mmol/L (22-32)
[2022-11-10 17:33] LABS: Glucose 615 mg/dL (70-100)
[2022-11-10 17:35] LABS: Anion Gap 19 mmol/L (2-16)
[2022-11-10 17:38] LABS: TSH Ultra Thyroid Stim Horm 1.42 mcIU/mL (0.34-5.60)
[2022-11-10] MEDS ORDERED: Lactated Ringers 1000 ml BAG 1,000 ML IV ONE (18:01)
[2022-11-10] MEDS ORDERED: fentaNYL 100 mcg/2 ml 50 MCG/ML VIAL ONE (18:20)
[2022-11-10 18:24] LABS: PCO2 Arterial 44 mmHg (35-45); PO2 Arterial 174 mmHg (80-100)
[2022-11-10 18:53] LABS: Calcium 7.7 mg/dL (8.6-10.3); Magnesium 2.1 mg/dL (1.9-2.7)
[2022-11-10 18:58] LABS: Creatinine, Serum 1.59 mg/dL (0.51-0.95); Phosphorus 3.3 mg/dL (2.5-5.0); eGFR CKD-EPI 34.5 (>60)
[2022-11-10 19:10] LABS: Potassium 2.6 mmol/L (3.5-5.0)
[2022-11-10] MEDS ORDERED: Propofol 10 mg/ml 100 ML BTL 1,000 MG/100 ML BTL ONE (19:30)
[2022-11-10] MEDS ORDERED: Norepinephrine 16MCG/ML BAGD5W 4,000 MCG/250 ML BAG IV ONE (19:46)
[2022-11-10] MEDS: Propofol 10 mg/ml 100 ML BTL 1,000 MG/100 ML BTL IV SCH (19:50)
[2022-11-10] MEDS: Potassium Chloride IV 40 MEQ in Lactated Ringers 1000 ml BAG 1,000 ML IVPB SCH ×2 (20:13→23:05)
[2022-11-10] MEDS: KCL 20 MEQ/100 ML IVPREMIX 20 MEQ/100 ML BAG IV SCH ×2 (20:22→21:28)
[2022-11-10] MEDS: Pantoprazole VIAL 40 MG VIAL IV SCH (20:46)
[2022-11-10 20:49] LABS: ABS Lymphocytes 0.8 10^3/uL (1.0-4.8); ABS Monocytes 0.3 10^3/uL (0.0-0.9); ABS Neutrophils 2.8 10^3/uL (1.5-7.6); Eosinophil % 0.1 %; Hematocrit 40.3 % (35-45); Hemoglobin 13.2 g/dL (11.5-14.3); Lymphocyte % 20.1 %; Mean Corpuscular Hemoglobin 28.1 pg (27-33); Mean Corpuscular Hgb Conc 32.7 g/dL (31-36); Mean Corpuscular Volume 85.8 fL (80-97); Mean Platelet Volume 8.8 fL (7.5-11.2); Nucleated Red Blood Cells % 0.1 /100 WBC (0.0-0.4); Platelet Count 262 10^3/uL (150-450); Red Blood Count 4.69 10^6/uL (3.63-4.92); Red Cell Distribution Width 13.6 % (12-17)
[2022-11-10 20:50] LABS: PCO2 Arterial 41 mmHg (35-45); PO2 Arterial 238 mmHg (80-100)
[2022-11-10 21:18] LABS: Urine Appearance Clear; Urine Bilirubin Negative (Negative); Urine Blood 2+ (Negative); Urine Color Straw; Urine Glucose 3+(>=500 mg/dL) (Negative); Urine Ketones 1+ (Negative); Urine Nitrite Negative (Negative); Urine Protein 1+(30 mg/dL) (Negative); Urine Specific Gravity 1.021 (1.002-1.030); Urine Urobilinogen Negative (Negative)
[2022-11-10 21:23] LABS: Urine Bacteria Absent (Absent); Urine Red Blood Cell Trace(0-2/hpf) (Absent); Urine White Blood Cell Trace(0-5/hpf) (Absent)
[2022-11-10] MEDS: Norepinephrine 16MCG/ML BAGD5W 4,000 MCG/250 ML BAG IV SCH ×2 (21:30→23:12)
[2022-11-10] MEDS: Chlorhexidine MOUTHWASH 0.12% 15 ML UDC TOPICAL SCH ×2 (21:31→22:49)
[2022-11-10] MEDS ORDERED: Enoxaparin 80 MG/0.8 ML SYR SUBCUT ONE (21:52)
[2022-11-10 22:13] LABS: Albumin 2.9 g/dL (3.2-5.2); Albumin/Globulin Ratio 1.6 (1-3); Creatinine, Serum 1.55 mg/dL (0.51-0.95); Globulin 1.8 g/dL (2-4); Potassium 3.4 mmol/L (3.5-5.0); Total Bilirubin 0.5 mg/dL (0.2-1.0); Total Protein 4.7 g/dL (6.4-8.9); eGFR CKD-EPI 35.6 (>60)
[2022-11-10] MEDS ORDERED: Iodixanol (CONTRAST) 320 MG/ML 100 ML SDV IV ONE (22:36)
[2022-11-10] MEDS: methylPREDNISolone SOD SUCC 40 mg/ml 1 ml VIAL IV SCH (22:48)
[2022-11-10] MEDS: fentaNYL INFUSION 50 mcg/mL VL 2,500 MCG/50 ML VIAL IV SCH (23:01)
[2022-11-11] MEDS ORDERED: metroNIDAZOLE IV 500 MG/100ML 500 MG/100 ML BAG IVPB SCH
[2022-11-11] MEDS: metroNIDAZOLE IV 500 MG/100ML 500 MG/100 ML BAG IVPB SCH ×3 (00:27→16:30)
[2022-11-11] MEDS: Chlorhexidine MOUTHWASH 0.12% 15 ML UDC TOPICAL SCH ×6 (02:12→21:56)
[2022-11-11] MEDS: methylPREDNISolone SOD SUCC 40 mg/ml 1 ml VIAL IV SCH ×2 (02:53→06:31)
[2022-11-11 02:57] LABS: Calcium 8.3 mg/dL (8.6-10.3); Creatinine, Serum 1.75 mg/dL (0.51-0.95); Magnesium 1.9 mg/dL (1.9-2.7); Potassium 3.9 mmol/L (3.5-5.0); eGFR CKD-EPI 30.8 (>60)
[2022-11-11 02:58] LABS: PCO2 Arterial 28 mmHg (35-45); PO2 Arterial 148 mmHg (80-100)
[2022-11-11] MEDS: Propofol 10 mg/ml 100 ML BTL 1,000 MG/100 ML BTL IV SCH ×4 (03:40→21:55)
[2022-11-11] MEDS: Norepinephrine 16MCG/ML BAGD5W 4,000 MCG/250 ML BAG IV SCH ×5 (03:41→18:34)
[2022-11-11] MEDS ORDERED: Magnesium Sulfate 2 gm BAG 2 GM/50 ML BAG IVPB ONE ×2 (04:33→13:09)
[2022-11-11] MEDS ORDERED: Lactated Ringers 1000 ml BAG 1,000 ML IV SCH (05:00)
[2022-11-11 05:27] LABS: Hematocrit 39.9 % (35-45); Hemoglobin 13.3 g/dL (11.5-14.3); Mean Corpuscular Hgb Conc 33.2 g/dL (31-36); Mean Corpuscular Volume 84.4 fL (80-97); Mean Platelet Volume 8.9 fL (7.5-11.2); Platelet Count 233 10^3/uL (150-450); Red Blood Count 4.73 10^6/uL (3.63-4.92); Red Cell Distribution Width 13.9 % (12-17); White Blood Count 9.2 10^3/uL (3.8-11.8)
[2022-11-11] MEDS ORDERED: Heparin 5000 UNITS/ML 1 mL VIAL SUBCUT SCH (06:00)
[2022-11-11 06:11] LABS: Albumin 2.8 g/dL (3.2-5.2); Albumin/Globulin Ratio 1.6 (1-3); Calcium 8.3 mg/dL (8.6-10.3); Creatinine, Serum 1.7 mg/dL (0.51-0.95); Globulin 1.7 g/dL (2-4); Magnesium 1.9 mg/dL (1.9-2.7); Potassium 4.1 mmol/L (3.5-5.0); Total Bilirubin 0.8 mg/dL (0.2-1.0); Total Protein 4.5 g/dL (6.4-8.9); eGFR CKD-EPI 31.9 (>60)
[2022-11-11 08:16] LABS: Burr Cells 1+; Polychromasia 1+
[2022-11-11 08:19] LABS: ABS Lymphocytes 0.7 10^3/uL (1.0-4.8); ABS Monocytes 0.7 10^3/uL (0.0-0.9); ABS Neutrophils 7.9 10^3/uL (1.5-7.6); ABS Nucleated RBC 0.01 10^3/ul; Lymphocyte % 7.2 %; Nucleated Red Blood Cells % 0.1 /100 WBC (0.0-0.4)
[2022-11-11] MEDS ORDERED: Heparin DRIP 25,000 UNITS BAG 25,000 UNITS/500 ML BAG IV SCH (09:00)
[2022-11-11] MEDS: NORMOSOL-R pH 7.4 1000 mL BAG 1,000 ML IV SCH ×3 (09:12→21:33)
[2022-11-11 09:29] LABS: Hematocrit 39.4 % (35-45); Mean Corpuscular Hemoglobin 27.7 pg (27-33); Mean Corpuscular Hgb Conc 32.9 g/dL (31-36); Mean Corpuscular Volume 84.3 fL (80-97); Mean Platelet Volume 9.2 fL (7.5-11.2); Platelet Count 238 10^3/uL (150-450); Red Blood Count 4.68 10^6/uL (3.63-4.92); Red Cell Distribution Width 13.8 % (12-17); White Blood Count 11.5 10^3/uL (3.8-11.8)
[2022-11-11] MEDS ORDERED: Heparin 5000 UNITS/ML 1 mL VIAL IV SCH (10:00)
[2022-11-11 10:09] LABS: Creatinine, Serum 1.68 mg/dL (0.51-0.95); eGFR CKD-EPI 32.3 (>60)
[2022-11-11 10:59] LABS: ABS Lymphocytes 0.6 10^3/uL (1.0-4.8); ABS Monocytes 0.7 10^3/uL (0.0-0.9); ABS Neutrophils 10.1 10^3/uL (1.5-7.6); ABS Nucleated RBC 0.01 10^3/ul; Lymphocyte % 5.5 %
[2022-11-11 12:23] LABS: Albumin 2.8 g/dL (3.2-5.2); Albumin/Globulin Ratio 1.2 (1-3); Calcium 8.5 mg/dL (8.6-10.3); Creatinine, Serum 1.61 mg/dL (0.51-0.95); Globulin 2.3 g/dL (2-4); Total Bilirubin 0.6 mg/dL (0.2-1.0); Total Protein 5.1 g/dL (6.4-8.9)
[2022-11-11] MEDS: cefTRIAXone 1 gm/50 mL D5W 1 GM/50 ML BAG IV SCH (15:31)
[2022-11-11 16:56] LABS: PCO2 Arterial 26 mmHg (35-45); PO2 Arterial 90 mmHg (80-100)
[2022-11-11] MEDS ORDERED: TPN CENTRAL STANDARD BASE A CENT\\PICC SCH (17:00)
[2022-11-11] MEDS ORDERED: NORMOSOL R PH IV ONE (17:10)
[2022-11-11] MEDS: Pantoprazole VIAL 40 MG VIAL IV SCH (17:32)
[2022-11-11 18:54] LABS: Albumin 2.1 g/dL (3.2-5.2); Calcium 7.1 mg/dL (8.6-10.3); Potassium 3.6 mmol/L (3.5-5.0); Total Bilirubin 0.4 mg/dL (0.2-1.0)
[2022-11-11 19:00] LABS: Creatinine, Serum 1.48 mg/dL (0.51-0.95); eGFR CKD-EPI 37.6 (>60)
[2022-11-11 19:18] LABS: Albumin/Globulin Ratio 1.4 (1-3); Globulin 1.5 g/dL (2-4); Total Protein 3.6 g/dL (6.4-8.9)
[2022-11-11] MEDS: KCL 20 MEQ/100 ML IVPREMIX 20 MEQ/100 ML BAG IV SCH ×2 (20:53→22:58)
[2022-11-12] MEDS: Norepinephrine 16MCG/ML BAGD5W 4,000 MCG/250 ML BAG IV SCH ×7 (00:20→21:44)
[2022-11-12 00:51] LABS: Albumin 2.2 g/dL (3.2-5.2); Albumin/Globulin Ratio 1.4 (1-3); Calcium 7.4 mg/dL (8.6-10.3); Creatinine, Serum 1.33 mg/dL (0.51-0.95); Globulin 1.6 g/dL (2-4); Potassium 4.1 mmol/L (3.5-5.0); Total Bilirubin 0.4 mg/dL (0.2-1.0); Total Protein 3.8 g/dL (6.4-8.9); eGFR CKD-EPI 42.8 (>60)
[2022-11-12] MEDS: Chlorhexidine MOUTHWASH 0.12% 15 ML UDC TOPICAL SCH ×6 (02:48→21:50)
[2022-11-12] MEDS: Propofol 10 mg/ml 100 ML BTL 1,000 MG/100 ML BTL IV SCH ×4 (04:34→22:09)
[2022-11-12 05:15] LABS: Hematocrit 32.4 % (35-45); Hemoglobin 11.1 g/dL (11.5-14.3); Mean Corpuscular Hemoglobin 28.7 pg (27-33); Mean Corpuscular Hgb Conc 34.1 g/dL (31-36); Mean Corpuscular Volume 84.1 fL (80-97); Mean Platelet Volume 9.4 fL (7.5-11.2); Platelet Count 195 10^3/uL (150-450); Red Blood Count 3.86 10^6/uL (3.63-4.92)
[2022-11-12] MEDS: NORMOSOL-R pH 7.4 1000 mL BAG 1,000 ML IV SCH ×3 (05:34→20:53)
[2022-11-12 05:59] LABS: ALT 22 U/L (7-52); Albumin 2.1 g/dL (3.2-5.2); Albumin/Globulin Ratio 1.4 (1-3); Alkaline Phosphatase 74 U/L (35-149); Blood Urea Nitrogen 31 mg/dL (6-24); CO2 Carbon Dioxide 16 mmol/L (22-32); Calcium 7.5 mg/dL (8.6-10.3); Chloride 114 mmol/L (101-111); Cholesterol 72 mg/dL; Creatinine, Serum 1.22 mg/dL (0.51-0.95); Globulin 1.5 g/dL (2-4); Glucose 372 mg/dL (70-100); Magnesium 2.8 mg/dL (1.9-2.7); Prealbumin < 3 mg/dL (18-38); Sodium 138 mmol/L (135-145); Total Protein 3.6 g/dL (6.4-8.9); Triglycerides 397 mg/dL; eGFR CKD-EPI 47.4 (>60)
[2022-11-12 06:12] LABS: Anion Gap 8 mmol/L (2-16)
[2022-11-12 06:29] LABS: ABS Lymphocytes 1.1 10^3/uL (1.0-4.8); ABS Monocytes 0.5 10^3/uL (0.0-0.9); ABS Neutrophils 10.3 10^3/uL (1.5-7.6); ABS Nucleated RBC 0.01 10^3/ul; Lymphocyte % 9.2 %; RBC Morphology Normal (Normal)
[2022-11-12] MEDS: fentaNYL INFUSION 50 mcg/mL VL 2,500 MCG/50 ML VIAL IV SCH (06:46)
[2022-11-12] MEDS ORDERED: Dextrose 50% Syringe 50 ml 25 GM/50 ML SYRINGE IV PUSH PRN ×2 (07:17→17:06)
[2022-11-12] MEDS ORDERED: Rocuronium 50 mg VIAL 10 mg/ml 5 ml VIAL (50 mg) ONE (07:49)
[2022-11-12] MEDS ORDERED: Midazolam 5 mg/5 ml VIAL 1 mg/ml 5 ml VIAL (5 mg) ONE (07:49)
[2022-11-12 07:59] LABS: Potassium, Whole Blood 4.2 mmol/L (3.4-4.5)
[2022-11-12] MEDS ORDERED: Insulin Infusion 100unit/100mL 100 UNIT/100 ML BAG IV SCH (08:30)
[2022-11-12] MEDS: Insulin GLARGINE 100 un/ml 10 ml VIAL SUBCUT SCH (08:33)
[2022-11-12] MEDS: metroNIDAZOLE IV 500 MG/100ML 500 MG/100 ML BAG IVPB SCH ×3 (08:53→17:22)
[2022-11-12] MEDS ORDERED: Insulin GLARGINE 100 un/ml 10 ml VIAL SUBCUT SCH (09:00)
[2022-11-12] MEDS ORDERED: HYDROmorphone 0.5 MG/0.5 ML SYRINGE ONE (09:13)
[2022-11-12] MEDS ORDERED: Propofol 10 MG/ML 20 ML BTL ONE (09:14)
[2022-11-12 11:13] LABS: Hematocrit 36.7 % (35-45); Hemoglobin 12.1 g/dL (11.5-14.3); Mean Corpuscular Hemoglobin 28.7 pg (27-33); Mean Corpuscular Volume 86.8 fL (80-97); Mean Platelet Volume 9.4 fL (7.5-11.2); Platelet Count 196 10^3/uL (150-450); Red Blood Count 4.22 10^6/uL (3.63-4.92); Red Cell Distribution Width 14.4 % (12-17); White Blood Count 7.7 10^3/uL (3.8-11.8)
[2022-11-12] MEDS: Heparin DRIP 25,000 UNITS BAG 25,000 UNITS/500 ML BAG IV SCH (11:14)
[2022-11-12] MEDS ORDERED: Heparin 5000 UNITS/ML 1 mL VIAL IV PRN (11:14)
[2022-11-12 11:55] LABS: RBC Morphology Normal (Normal)
[2022-11-12 11:56] LABS: ABS Monocytes 0.3 10^3/uL (0.0-0.9); ABS Neutrophils 6.4 10^3/uL (1.5-7.6); ABS Nucleated RBC 0.01 10^3/ul; Eosinophil % 0.1 %; Lymphocyte % 12.9 %; Nucleated Red Blood Cells % 0.1 /100 WBC (0.0-0.4)
[2022-11-12] MEDS: cefTRIAXone 1 gm/50 mL D5W 1 GM/50 ML BAG IV SCH (14:37)
[2022-11-12] MEDS ORDERED: PPN (PERIPHERAL) 24 HR with D10W 1000 ml BAG 1,000 ML, Amino Acid Infusion 10% 850 ML, ... IV SCH (17:00)
[2022-11-12] MEDS: Pantoprazole VIAL 40 MG VIAL IV SCH (17:52)
[2022-11-13] MEDS: metroNIDAZOLE IV 500 MG/100ML 500 MG/100 ML BAG IVPB SCH ×3 (00:26→17:16)
[2022-11-13] MEDS: Norepinephrine *QUAD STRENGTH* 16 mg/250 mL NS per protocol IV SCH ×2 (01:55→12:50)
[2022-11-13] MEDS: Chlorhexidine MOUTHWASH 0.12% 15 ML UDC TOPICAL SCH ×6 (02:09→22:41)
[2022-11-13] MEDS: Heparin DRIP 25,000 UNITS BAG 25,000 UNITS/500 ML BAG IV SCH (02:54)
[2022-11-13] MEDS: Propofol 10 mg/ml 100 ML BTL 1,000 MG/100 ML BTL IV SCH ×5 (04:05→22:22)
[2022-11-13] MEDS: NORMOSOL-R pH 7.4 1000 mL BAG 1,000 ML IV SCH ×3 (04:44→19:57)
[2022-11-13 05:16] LABS: ALT 34 U/L (7-52); Albumin 1.8 g/dL (3.2-5.2); Albumin/Globulin Ratio 1.2 (1-3); Alkaline Phosphatase 72 U/L (35-149); Blood Urea Nitrogen 25 mg/dL (6-24); CO2 Carbon Dioxide 18 mmol/L (22-32); Calcium 7.4 mg/dL (8.6-10.3); Chloride 109 mmol/L (101-111); Cholesterol 115 mg/dL; Creatinine, Serum 0.79 mg/dL (0.51-0.95); Globulin 1.5 g/dL (2-4); Glucose 244 mg/dL (70-100); Prealbumin < 3 mg/dL (18-38); Total Protein 3.3 g/dL (6.4-8.9); eGFR CKD-EPI 79.9 (>60)
[2022-11-13 05:23] LABS: Hematocrit 31.3 % (35-45); Hemoglobin 10.7 g/dL (11.5-14.3); Mean Corpuscular Hemoglobin 29.6 pg (27-33); Mean Corpuscular Hgb Conc 34.3 g/dL (31-36); Mean Corpuscular Volume 86.5 fL (80-97); Mean Platelet Volume 9.6 fL (7.5-11.2); Platelet Count 197 10^3/uL (150-450); Red Blood Count 3.62 10^6/uL (3.63-4.92); Red Cell Distribution Width 14.5 % (12-17)
[2022-11-13 05:27] LABS: ABS Eosinophils 0.3 10^3/uL (0.0-0.5); ABS Monocytes 0.4 10^3/uL (0.0-0.9); ABS Neutrophils 10.3 10^3/uL (1.5-7.6); ABS Nucleated RBC 0.04 10^3/ul; Eosinophil % 1.9 %; Lymphocyte % 15.1 %; Nucleated Red Blood Cells % 0.3 /100 WBC (0.0-0.4)
[2022-11-13 05:29] LABS: Anisocytosis 1+; Polychromasia 1+
[2022-11-13 05:38] LABS: Triglycerides 1104 mg/dL
[2022-11-13 08:22] LABS: Potassium, Whole Blood 3.7 mmol/L (3.4-4.5)
[2022-11-13] MEDS: Insulin GLARGINE 100 un/ml 10 ml VIAL SUBCUT SCH (08:57)
[2022-11-13] MEDS: cefTRIAXone 1 gm/50 mL D5W 1 GM/50 ML BAG IV SCH (13:24)
[2022-11-13] MEDS ORDERED: TPN 24 HR with Dextrose 40% Water 500 ML, Amino Acid Infusion 10% 850 ML, Sterile Water... CENT\\PICC SCH (17:00)
[2022-11-13] MEDS: Pantoprazole VIAL 40 MG VIAL IV SCH (17:17)
[2022-11-13 20:42] LABS: Sodium 138 mmol/L (135-145)
[2022-11-13 20:43] LABS: Anion Gap 11 mmol/L (2-16)
[2022-11-14] MEDS: metroNIDAZOLE IV 500 MG/100ML 500 MG/100 ML BAG IVPB SCH ×3 (00:45→16:02)
[2022-11-14 02:46] LABS: Hematocrit 27.4 % (35-45); Hemoglobin 9.6 g/dL (11.5-14.3); Mean Corpuscular Hemoglobin 29.7 pg (27-33); Mean Corpuscular Hgb Conc 34.9 g/dL (31-36); Mean Platelet Volume 9.3 fL (7.5-11.2); Platelet Count 164 10^3/uL (150-450); Red Blood Count 3.22 10^6/uL (3.63-4.92); Red Cell Distribution Width 14.5 % (12-17); White Blood Count 11.6 10^3/uL (3.8-11.8)
[2022-11-14 02:51] LABS: ABS Eosinophils 0.5 10^3/uL (0.0-0.5); ABS Lymphocytes 2.1 10^3/uL (1.0-4.8); ABS Monocytes 0.8 10^3/uL (0.0-0.9); ABS Neutrophils 8.2 10^3/uL (1.5-7.6); ABS Nucleated RBC 0.01 10^3/ul; Eosinophil % 4.1 %; Lymphocyte % 17.8 %; Nucleated Red Blood Cells % 0.1 /100 WBC (0.0-0.4)
[2022-11-14] MEDS: Chlorhexidine MOUTHWASH 0.12% 15 ML UDC TOPICAL SCH ×6 (02:55→21:48)
[2022-11-14 03:22] LABS: ALT 22 U/L (7-52); AST 24 U/L (13-39); Alkaline Phosphatase 79 U/L (35-149); Anion Gap 6 mmol/L (2-16); Blood Urea Nitrogen 22 mg/dL (6-24); CO2 Carbon Dioxide 20 mmol/L (22-32); Calcium 7.2 mg/dL (8.6-10.3); Chloride 113 mmol/L (101-111); Cholesterol 126 mg/dL; Creatinine, Serum 0.65 mg/dL (0.51-0.95); Glucose 263 mg/dL (70-100); Phosphorus 1.4 mg/dL (2.5-5.0); Potassium 3.3 mmol/L (3.5-5.0); Prealbumin < 3 mg/dL (18-38); Sodium 139 mmol/L (135-145); Triglycerides 723 mg/dL; eGFR CKD-EPI 94.1 (>60)
[2022-11-14 03:34] LABS: Albumin < 1.7 g/dL (3.2-5.2); Albumin/Globulin Ratio 1.3 (1-3); Globulin 1.3 g/dL (2-4)
[2022-11-14 03:35] LABS: Magnesium 1.9 mg/dL (1.9-2.7)
[2022-11-14] MEDS: NORMOSOL-R pH 7.4 1000 mL BAG 1,000 ML IV SCH ×3 (03:54→23:51)
[2022-11-14] MEDS: Propofol 10 mg/ml 100 ML BTL 1,000 MG/100 ML BTL IV SCH ×4 (04:25→21:37)
[2022-11-14] MEDS: Insulin GLARGINE 100 un/ml 10 ml VIAL SUBCUT SCH (07:50)
[2022-11-14] MEDS: Norepinephrine *QUAD STRENGTH* 16 mg/250 mL NS per protocol IV SCH (08:52)
[2022-11-14 10:50] LABS: PCO2 Arterial 31 mmHg (35-45); PO2 Arterial 134 mmHg (80-100)
[2022-11-14] MEDS: fentaNYL INFUSION 50 mcg/mL VL 2,500 MCG/50 ML VIAL IV SCH (11:29)
[2022-11-14] MEDS ORDERED: fentaNYL 250 mcg/5 ml 50 MCG/ML 5 ml VIAL (250 MCG) ONE (12:36)
[2022-11-14] MEDS ORDERED: Sodium Chloride 0.9% 10 ML ONE (12:40)
[2022-11-14] MEDS ORDERED: Phenylephrine 40 mcg/mL 10mL (400mcg) SYRINGE ONE (13:17)
[2022-11-14] MEDS ORDERED: HYDROmorphone 0.5 MG/0.5 ML SYRINGE ONE (13:39)
[2022-11-14] MEDS ORDERED: fentaNYL 100 mcg/2 ml 50 MCG/ML VIAL ONE (13:56)
[2022-11-14] MEDS ORDERED: Ondansetron 4 mg VIAL 2 MG/ML 2 ml VIAL ONE (14:16)
[2022-11-14] MEDS: cefTRIAXone 1 gm/50 mL D5W 1 GM/50 ML BAG IV SCH (15:51)
[2022-11-14] MEDS ORDERED: TPN 24 HR with Dextrose 40% Water 500 ML, Amino Acid Infusion 10% 850 ML, Sterile Water... CENT\\PICC SCH (17:00)
[2022-11-14] MEDS: Pantoprazole VIAL 40 MG VIAL IV SCH (17:06)
[2022-11-14 18:42] LABS: Activated Partial Thrombo Time 25.1 seconds (26.0-38.0); INR 1.03 (0.88-1.18)
[2022-11-14 18:48] LABS: Hematocrit 31.3 % (35-45); Hemoglobin 10.4 g/dL (11.5-14.3); Mean Corpuscular Hemoglobin 28.7 pg (27-33); Mean Corpuscular Hgb Conc 33.3 g/dL (31-36); Mean Corpuscular Volume 86.3 fL (80-97); Red Blood Count 3.63 10^6/uL (3.63-4.92); Red Cell Distribution Width 14.6 % (12-17); White Blood Count 10.1 10^3/uL (3.8-11.8)
[2022-11-14 19:34] LABS: Platelet Count 191 10^3/uL (150-450)
[2022-11-14 19:40] LABS: RBC Morphology Normal (Normal)
[2022-11-14 19:42] LABS: ABS Basophils 0.1 10^3/uL (0.0-0.1); ABS Eosinophils 0.2 10^3/uL (0.0-0.5); ABS Lymphocytes 1.1 10^3/uL (1.0-4.8); ABS Monocytes 0.3 10^3/uL (0.0-0.9); ABS Neutrophils 8.4 10^3/uL (1.5-7.6); ABS Nucleated RBC 0.03 10^3/ul; Eosinophil % 1.6 %; Lymphocyte % 10.7 %; Nucleated Red Blood Cells % 0.3 /100 WBC (0.0-0.4)
[2022-11-15] MEDS: metroNIDAZOLE IV 500 MG/100ML 500 MG/100 ML BAG IVPB SCH ×4 (00:11→23:40)
[2022-11-15 00:58] LABS: Calcium 7.1 mg/dL (8.6-10.3); Magnesium 1.8 mg/dL (1.9-2.7); Potassium 3.8 mmol/L (3.5-5.0)
[2022-11-15] MEDS ORDERED: Magnesium Sulfate 2 gm BAG 2 GM/50 ML BAG IVPB ONE (01:01)
[2022-11-15 01:04] LABS: Creatinine, Serum 0.66 mg/dL (0.51-0.95); eGFR CKD-EPI 93.7 (>60)
[2022-11-15] MEDS: Chlorhexidine MOUTHWASH 0.12% 15 ML UDC TOPICAL SCH ×6 (02:26→23:41)
[2022-11-15 05:12] LABS: Hematocrit 30.4 % (35-45); Hemoglobin 10.2 g/dL (11.5-14.3); Mean Corpuscular Hemoglobin 28.2 pg (27-33); Mean Corpuscular Hgb Conc 33.4 g/dL (31-36); Mean Corpuscular Volume 84.2 fL (80-97); Mean Platelet Volume 9.3 fL (7.5-11.2); Platelet Count 194 10^3/uL (150-450); Red Blood Count 3.61 10^6/uL (3.63-4.92); Red Cell Distribution Width 14.4 % (12-17); White Blood Count 13.1 10^3/uL (3.8-11.8)
[2022-11-15 05:19] LABS: PCO2 Arterial 32 mmHg (35-45); PO2 Arterial 80 mmHg (80-100)
[2022-11-15 05:40] LABS: INR 1.01 (0.88-1.18)
[2022-11-15 05:53] LABS: ALT 19 U/L (7-52); AST 20 U/L (13-39); Albumin 1.7 g/dL (3.2-5.2); Albumin/Globulin Ratio 1.1 (1-3); Alkaline Phosphatase 67 U/L (35-149); Anion Gap 5 mmol/L (2-16); Blood Urea Nitrogen 25 mg/dL (6-24); CO2 Carbon Dioxide 19 mmol/L (22-32); Calcium 7.3 mg/dL (8.6-10.3); Chloride 120 mmol/L (101-111); Cholesterol 113 mg/dL; Creatine Kinase 347 U/L (10-223); Creatinine, Serum 0.66 mg/dL (0.51-0.95); Globulin 1.6 g/dL (2-4); Glucose 243 mg/dL (70-100); Magnesium 2.5 mg/dL (1.9-2.7); Potassium 3.8 mmol/L (3.5-5.0); Prealbumin 6 mg/dL (18-38); Sodium 144 mmol/L (135-145); Total Protein 3.3 g/dL (6.4-8.9); Triglycerides 263 mg/dL; eGFR CKD-EPI 93.7 (>60)
[2022-11-15] MEDS: Propofol 10 mg/ml 100 ML BTL 1,000 MG/100 ML BTL IV SCH (05:55)
[2022-11-15 05:57] LABS: CKMB ng/mL 2.7 ng/mL (0.6-6.3)
[2022-11-15 07:01] LABS: ABS Eosinophils 0.1 10^3/uL (0.0-0.5); ABS Lymphocytes 1.3 10^3/uL (1.0-4.8); ABS Monocytes 1.7 10^3/uL (0.0-0.9); ABS Neutrophils 10.1 10^3/uL (1.5-7.6); ABS Nucleated RBC 0.02 10^3/ul; Eosinophil % 0.5 %; Nucleated Red Blood Cells % 0.2 /100 WBC (0.0-0.4)
[2022-11-15] MEDS: Insulin GLARGINE 100 un/ml 10 ml VIAL SUBCUT SCH (08:22)
[2022-11-15] MEDS ORDERED: Insulin GLARGINE 100 un/ml 10 ml VIAL SUBCUT ONE (09:39)
[2022-11-15] MEDS ORDERED: Furosemide 20 mg/2 ml IV VIAL IV SLOW PU SCH (10:00)
[2022-11-15] MEDS: Enoxaparin 40 MG/0.4 ML SYR SUBCUT SCH (12:20)
[2022-11-15] MEDS ORDERED: Dexmedetomidine 200 mcg/2 ml 2 ml VIAL (200 mcg) ONE (13:45)
[2022-11-15] MEDS: Dexmedetomidine 1,000 MCG in NS 0.9% 250 ml 240 ML IV SCH (13:52)
[2022-11-15] MEDS: cefTRIAXone 1 gm/50 mL D5W 1 GM/50 ML BAG IV SCH (14:44)
[2022-11-15] MEDS ORDERED: TPN 24 HR with Dextrose 40% Water 500 ML, Amino Acid Infusion 10% 850 ML, Sterile Water... CENT\\PICC SCH (17:00)
[2022-11-15] MEDS: Pantoprazole VIAL 40 MG VIAL IV SCH (17:11)
[2022-11-15] MEDS: Norepinephrine *QUAD STRENGTH* 16 mg/250 mL NS per protocol IV SCH (17:18)
[2022-11-16] MEDS: Chlorhexidine MOUTHWASH 0.12% 15 ML UDC TOPICAL SCH ×4 (02:48→15:07)
[2022-11-16] MEDS: Dexmedetomidine 1,000 MCG in NS 0.9% 250 ml 240 ML IV SCH (02:53)
[2022-11-16] MEDS: Acetaminophen IV 1 GM/100ML 1,000 MG/100 ML BAG IV PRN ×2 (04:15→17:58)
[2022-11-16] MEDS: fentaNYL INFUSION 50 mcg/mL VL 2,500 MCG/50 ML VIAL IV SCH (04:23)
[2022-11-16 06:18] LABS: Hematocrit 25.7 % (35-45); Hemoglobin 8.5 g/dL (11.5-14.3); Mean Corpuscular Hemoglobin 28.2 pg (27-33); Mean Corpuscular Hgb Conc 33.1 g/dL (31-36); Mean Corpuscular Volume 85.1 fL (80-97); Mean Platelet Volume 9.2 fL (7.5-11.2); Platelet Count 194 10^3/uL (150-450); Red Blood Count 3.03 10^6/uL (3.63-4.92); Red Cell Distribution Width 14.2 % (12-17); White Blood Count 15.4 10^3/uL (3.8-11.8)
[2022-11-16 06:31] LABS: ABS Basophils 0.1 10^3/uL (0.0-0.1); ABS Monocytes 1.9 10^3/uL (0.0-0.9); ABS Neutrophils 11.4 10^3/uL (1.5-7.6); ABS Nucleated RBC 0.02 10^3/ul; Eosinophil % 0.2 %; Lymphocyte % 13.1 %; Nucleated Red Blood Cells % 0.1 /100 WBC (0.0-0.4)
[2022-11-16 06:48] LABS: Calcium 7.4 mg/dL (8.6-10.3); Creatinine, Serum 0.71 mg/dL (0.51-0.95); Magnesium 2.1 mg/dL (1.9-2.7); Phosphorus 1.8 mg/dL (2.5-5.0); Potassium 3.6 mmol/L (3.5-5.0); eGFR CKD-EPI 90.8 (>60)
[2022-11-16] MEDS ORDERED: nitroGLYCERIN DRIP 0 MCG/0 ML BTL ONE (07:21)
[2022-11-16] MEDS ORDERED: Insulin GLARGINE 100 un/ml 10 ml VIAL SUBCUT SCH (08:00)
[2022-11-16] MEDS: Furosemide 40 mg/4 ml IV VIAL IV SLOW PU SCH ×2 (08:35→15:25)
[2022-11-16] MEDS: Insulin GLARGINE 100 un/ml 10 ml VIAL SUBCUT SCH (08:49)
[2022-11-16] MEDS ORDERED: metroNIDAZOLE IV 250 MG/50ML 50 ML IVPB SCH (09:00)
[2022-11-16] MEDS: cefTRIAXone 1 gm/50 mL D5W 1 GM/50 ML BAG IV SCH (10:55)
[2022-11-16] MEDS: metroNIDAZOLE IV 500 MG/100ML 100 ML IVPB SCH ×2 (10:55→17:34)
[2022-11-16] MEDS: Enoxaparin 40 MG/0.4 ML SYR SUBCUT SCH (12:57)
[2022-11-16] MEDS: Pantoprazole VIAL 40 MG VIAL IV SCH (15:23)
[2022-11-16] MEDS ORDERED: TPN 24 HR with Dextrose 40% Water 500 ML, Amino Acid Infusion 10% 850 ML, Sterile Water... CENT\\PICC SCH (17:00)
[2022-11-16] MEDS: fentaNYL 100 mcg/2 ml 50 MCG/ML VIAL IV SLOW PU PRN (19:57)
[2022-11-17] MEDS: fentaNYL 100 mcg/2 ml 50 MCG/ML VIAL IV SLOW PU PRN ×3 (00:14→18:49)
[2022-11-17] MEDS: metroNIDAZOLE IV 500 MG/100ML 100 ML IVPB SCH ×3 (00:33→17:10)
[2022-11-17 04:46] LABS: Hematocrit 27.5 % (35-45); Hemoglobin 9.1 g/dL (11.5-14.3); Mean Corpuscular Hemoglobin 28.3 pg (27-33); Mean Corpuscular Hgb Conc 33.2 g/dL (31-36); Mean Corpuscular Volume 85.1 fL (80-97); Mean Platelet Volume 9.7 fL (7.5-11.2); Platelet Count 193 10^3/uL (150-450); Red Blood Count 3.23 10^6/uL (3.63-4.92); Red Cell Distribution Width 14.6 % (12-17)
[2022-11-17 05:34] LABS: ABS Basophils 0.1 10^3/uL (0.0-0.1); ABS Eosinophils 0.1 10^3/uL (0.0-0.5); ABS Lymphocytes 2.2 10^3/uL (1.0-4.8); ABS Neutrophils 12.6 10^3/uL (1.5-7.6); ABS Nucleated RBC 0.01 10^3/ul; Eosinophil % 0.8 %; Lymphocyte % 13.9 %
[2022-11-17 05:41] LABS: Anion Gap 8 mmol/L (2-16); Blood Urea Nitrogen 39 mg/dL (6-24); CO2 Carbon Dioxide 25 mmol/L (22-32); Calcium 7.8 mg/dL (8.6-10.3); Chloride 118 mmol/L (101-111); Creatinine, Serum 0.72 mg/dL (0.51-0.95); Glucose 245 mg/dL (70-100); Magnesium 2.1 mg/dL (1.9-2.7); Phosphorus 2.3 mg/dL (2.5-5.0); Potassium 2.8 mmol/L (3.5-5.0); Sodium 151 mmol/L (135-145); eGFR CKD-EPI 89.3 (>60)
[2022-11-17] MEDS: KCL 20 MEQ/100 ML IVPREMIX 20 MEQ/100 ML BAG IV SCH ×3 (06:28→10:49)
[2022-11-17] MEDS: Ondansetron 4 mg VIAL 2 MG/ML 2 ml VIAL IV PRN (06:47)
[2022-11-17] MEDS: Insulin GLARGINE 100 un/ml 10 ml VIAL SUBCUT SCH (08:22)
[2022-11-17] MEDS: D5W 1000 ml BAG 1,000 ML IV SCH (08:24)
[2022-11-17] MEDS: cefTRIAXone 1 gm/50 mL D5W 1 GM/50 ML BAG IV SCH (08:29)
[2022-11-17] MEDS ORDERED: TPN 24 HR with Dextrose 40% Water 500 ML, Amino Acid Infusion 10% 850 ML, Sterile Water... CENT\\PICC SCH ×2 (10:05→17:00)
[2022-11-17 12:18] LABS: % Iron Saturation 18 % (15-55); .Transferrin 93 mg/dL (203-362); Iron 23 ug/dL (50-212); Total Iron Binding Capacity 130 mcg/dL (250-450); Unsaturated Iron Binding 107 ug/dL
[2022-11-17 12:28] LABS: Ferritin 201.1 ng/mL (11-307)
[2022-11-17] MEDS: Enoxaparin 40 MG/0.4 ML SYR SUBCUT SCH (12:37)
[2022-11-17] MEDS ORDERED: Furosemide 20 mg/2 ml IV VIAL IV ONE (16:00)
[2022-11-17 16:34] LABS: Vitamin B12 > 1450 pg/mL (180-914)
[2022-11-17] MEDS: Pantoprazole VIAL 40 MG VIAL IV SCH (17:00)
[2022-11-18] MEDS: Acetaminophen IV 1 GM/100ML 1,000 MG/100 ML BAG IV PRN ×2 (01:00→19:24)
[2022-11-18] MEDS: metroNIDAZOLE IV 500 MG/100ML 100 ML IVPB SCH ×3 (01:06→16:50)
[2022-11-18 04:19] LABS: ABS Basophils 0.1 10^3/uL (0.0-0.1); ABS Eosinophils 0.3 10^3/uL (0.0-0.5); ABS Lymphocytes 1.7 10^3/uL (1.0-4.8); ABS Monocytes 0.3 10^3/uL (0.0-0.9); ABS Nucleated RBC 0.04 10^3/ul; Eosinophil % 2.2 %; Hematocrit 24.2 % (35-45); Hemoglobin 8.1 g/dL (11.5-14.3); Mean Corpuscular Hemoglobin 28.1 pg (27-33); Mean Corpuscular Hgb Conc 33.3 g/dL (31-36); Mean Corpuscular Volume 84.4 fL (80-97); Mean Platelet Volume 10.7 fL (7.5-11.2); Nucleated Red Blood Cells % 0.4 /100 WBC (0.0-0.4); Platelet Count 188 10^3/uL (150-450); Red Blood Count 2.87 10^6/uL (3.63-4.92); Red Cell Distribution Width 14.4 % (12-17); White Blood Count 12.3 10^3/uL (3.8-11.8)
[2022-11-18 04:33] LABS: Calcium 7.5 mg/dL (8.6-10.3); Creatinine, Serum 0.73 mg/dL (0.51-0.95); Magnesium 1.9 mg/dL (1.9-2.7); Phosphorus 2.8 mg/dL (2.5-5.0); eGFR CKD-EPI 87.9 (>60)
[2022-11-18] MEDS: D5W 1000 ml BAG 1,000 ML IV SCH (04:37)
[2022-11-18] MEDS: KCL 20 MEQ/100 ML IVPREMIX 20 MEQ/100 ML BAG IV SCH ×2 (07:37→09:30)
[2022-11-18] MEDS: Insulin GLARGINE 100 un/ml 10 ml VIAL SUBCUT SCH (09:29)
[2022-11-18] MEDS ORDERED: Magnesium Sulfate 2 gm BAG 2 GM/50 ML BAG IVPB ONE (09:46)
[2022-11-18] MEDS ORDERED: Furosemide 20 mg/2 ml IV VIAL IV ONE (09:46)
[2022-11-18] MEDS ORDERED: Insulin GLARGINE 100 un/ml 10 ml VIAL SUBCUT ONE (09:51)
[2022-11-18] MEDS: fentaNYL 100 mcg/2 ml 50 MCG/ML VIAL IV SLOW PU PRN ×3 (10:57→20:47)
[2022-11-18] MEDS ORDERED: cefTRIAXone 1 gm/50 mL D5W 1 GM/50 ML BAG IV SCH (11:00)
[2022-11-18] MEDS: cefTRIAXone 1 gm/50 mL D5W 1 GM/50 ML BAG IV SCH (11:11)
[2022-11-18] MEDS: Enoxaparin 40 MG/0.4 ML SYR SUBCUT SCH (13:38)
[2022-11-18] MEDS: Ondansetron 4 mg VIAL 2 MG/ML 2 ml VIAL IV PRN (14:15)
[2022-11-18] MEDS: Pantoprazole VIAL 40 MG VIAL IV SCH (16:53)
[2022-11-18] MEDS ORDERED: TPN 24 HR with Dextrose 40% Water 500 ML, Amino Acid Infusion 10% 850 ML, Sterile Water... CENT\\PICC SCH (17:00)
[2022-11-18 17:26] LABS: Hematocrit 24.8 % (35-45)
[2022-11-19] MEDS: fentaNYL 100 mcg/2 ml 50 MCG/ML VIAL IV SLOW PU PRN ×2 (01:10→07:49)
[2022-11-19 04:37] LABS: ABS Eosinophils 0.2 10^3/uL (0.0-0.5); ABS Monocytes 0.3 10^3/uL (0.0-0.9); ABS Neutrophils 11.1 10^3/uL (1.5-7.6); ABS Nucleated RBC 0.04 10^3/ul; Eosinophil % 1.3 %; Hematocrit 24.6 % (35-45); Hemoglobin 8.1 g/dL (11.5-14.3); Lymphocyte % 14.4 %; Mean Corpuscular Hgb Conc 33.1 g/dL (31-36); Mean Corpuscular Volume 84.5 fL (80-97); Mean Platelet Volume 10.9 fL (7.5-11.2); Nucleated Red Blood Cells % 0.3 /100 WBC (0.0-0.4); Platelet Count 211 10^3/uL (150-450); Red Blood Count 2.91 10^6/uL (3.63-4.92); Red Cell Distribution Width 14.1 % (12-17); White Blood Count 13.6 10^3/uL (3.8-11.8)
[2022-11-19 05:10] LABS: Calcium 7.2 mg/dL (8.6-10.3); Creatinine, Serum 0.58 mg/dL (0.51-0.95); Phosphorus 2.8 mg/dL (2.5-5.0); Potassium 3.4 mmol/L (3.5-5.0); eGFR CKD-EPI 96.7 (>60)
[2022-11-19] MEDS ORDERED: Insulin GLARGINE 100 un/ml 10 ml VIAL SUBCUT SCH (09:00)
[2022-11-19] MEDS ORDERED: Potassium Chloride LIQUID 20 MEQ/15 ML LIQUID PO ONE (09:43)
[2022-11-19] MEDS ORDERED: Insulin GLARGINE 100 un/ml 10 ml VIAL ONE (09:54)
[2022-11-19] MEDS: oxyCODONE 5 mg/5 ml ORAL.SOLN UDC PO PRN ×2 (10:04→17:20)
[2022-11-19] MEDS: Insulin GLARGINE 100 un/ml 10 ml VIAL SUBCUT SCH (10:04)
[2022-11-19] MEDS ORDERED: Furosemide 20 mg/2 ml IV VIAL IV ONE (10:11)
[2022-11-19] MEDS: Ondansetron 4 mg VIAL 2 MG/ML 2 ml VIAL IV PRN (12:23)
[2022-11-19] MEDS ORDERED: KCL 20 MEQ/100 ML IVPREMIX 20 MEQ/100 ML BAG IV ONE (12:37)
[2022-11-19] MEDS: Morphine 2 MG/ML SYRINGE IV PRN ×2 (12:51→21:03)
[2022-11-19] MEDS: Enoxaparin 40 MG/0.4 ML SYR SUBCUT SCH (12:51)
[2022-11-19] MEDS: Acetaminophen IV 1 GM/100ML 1,000 MG/100 ML BAG IV PRN (15:21)
[2022-11-19] MEDS ORDERED: TPN 24 HR with Dextrose 40% Water 500 ML, Amino Acid Infusion 10% 850 ML, Sterile Water... CENT\\PICC SCH (17:00)
[2022-11-20] MEDS: Morphine 2 MG/ML SYRINGE IV PRN ×3 (01:46→09:33)
[2022-11-20 04:49] LABS: ABS Eosinophils 0.1 10^3/uL (0.0-0.5); ABS Lymphocytes 1.8 10^3/uL (1.0-4.8); ABS Monocytes 0.4 10^3/uL (0.0-0.9); ABS Neutrophils 11.5 10^3/uL (1.5-7.6); ABS Nucleated RBC 0.01 10^3/ul; Eosinophil % 0.8 %; Lymphocyte % 13.1 %; Mean Corpuscular Hgb Conc 33.4 g/dL (31-36); Mean Corpuscular Volume 86.8 fL (80-97); Mean Platelet Volume 10.3 fL (7.5-11.2); Platelet Count 243 10^3/uL (150-450); Red Blood Count 2.76 10^6/uL (3.63-4.92); Red Cell Distribution Width 14.2 % (12-17); White Blood Count 13.8 10^3/uL (3.8-11.8)
[2022-11-20 05:33] LABS: Calcium 7.3 mg/dL (8.6-10.3); Creatinine, Serum 0.54 mg/dL (0.51-0.95); Magnesium 1.9 mg/dL (1.9-2.7); Phosphorus 2.5 mg/dL (2.5-5.0); Potassium 4.2 mmol/L (3.5-5.0); eGFR CKD-EPI 98.4 (>60)
[2022-11-20] MEDS ORDERED: Magnesium Sulfate 2 gm BAG 2 GM/50 ML BAG IVPB ONE (07:41)
[2022-11-20] MEDS: oxyCODONE 5 mg/5 ml ORAL.SOLN UDC PO PRN ×3 (08:25→19:55)
[2022-11-20] MEDS: Acetaminophen IV 1 GM/100ML 1,000 MG/100 ML BAG IV PRN (08:27)
[2022-11-20] MEDS: Insulin GLARGINE 100 un/ml 10 ml VIAL SUBCUT SCH (08:52)
[2022-11-20] MEDS: Enoxaparin 40 MG/0.4 ML SYR SUBCUT SCH (12:55)
[2022-11-21] MEDS: oxyCODONE 5 mg/5 ml ORAL.SOLN UDC PO PRN ×2 (02:54→09:45)
[2022-11-21 06:10] LABS: ABS Eosinophils 0.1 10^3/uL (0.0-0.5); ABS Lymphocytes 1.8 10^3/uL (1.0-4.8); ABS Monocytes 0.4 10^3/uL (0.0-0.9); ABS Neutrophils 8.2 10^3/uL (1.5-7.6); ABS Nucleated RBC 0.01 10^3/ul; Eosinophil % 0.9 %; Hematocrit 24.7 % (35-45); Hemoglobin 8.2 g/dL (11.5-14.3); Lymphocyte % 17.5 %; Mean Corpuscular Hemoglobin 28.4 pg (27-33); Mean Corpuscular Hgb Conc 33.4 g/dL (31-36); Mean Corpuscular Volume 84.9 fL (80-97); Mean Platelet Volume 9.7 fL (7.5-11.2); Nucleated Red Blood Cells % 0.1 /100 WBC (0.0-0.4); Platelet Count 285 10^3/uL (150-450); Red Blood Count 2.91 10^6/uL (3.63-4.92); Red Cell Distribution Width 13.9 % (12-17); White Blood Count 10.6 10^3/uL (3.8-11.8)
[2022-11-21] MEDS: Acetaminophen IV 1 GM/100ML 1,000 MG/100 ML BAG IV PRN ×2 (06:34→21:11)
[2022-11-21 06:49] LABS: Calcium 7.5 mg/dL (8.6-10.3); Creatinine, Serum 0.54 mg/dL (0.51-0.95); Magnesium 1.9 mg/dL (1.9-2.7); Phosphorus 2.6 mg/dL (2.5-5.0); Potassium 4.3 mmol/L (3.5-5.0); eGFR CKD-EPI 98.4 (>60)
[2022-11-21] MEDS ORDERED: Magnesium Sulfate IV 1GM/100ML 1 GM/100 ML BAG IV ONE (07:43)
[2022-11-21] MEDS: Calcium Carb (TUMS) 500 mg CHEW TAB PO SCH ×3 (09:47→21:12)
[2022-11-21] MEDS: Psyllium PAK PO SCH (09:50)
[2022-11-21] MEDS: Insulin GLARGINE 100 un/ml 10 ml VIAL SUBCUT SCH (09:52)
[2022-11-21] MEDS: Enoxaparin 40 MG/0.4 ML SYR SUBCUT SCH (11:40)
[2022-11-21] MEDS ORDERED: Morphine 2 MG/ML SYRINGE IV PRN (12:40)
[2022-11-22 06:17] LABS: ABS Basophils 0.1 10^3/uL (0.0-0.1); ABS Eosinophils 0.1 10^3/uL (0.0-0.5); ABS Lymphocytes 1.6 10^3/uL (1.0-4.8); ABS Monocytes 0.5 10^3/uL (0.0-0.9); ABS Neutrophils 6.6 10^3/uL (1.5-7.6); Eosinophil % 0.9 %; Hematocrit 25.6 % (35-45); Hemoglobin 8.4 g/dL (11.5-14.3); Lymphocyte % 18.7 %; Mean Corpuscular Hemoglobin 28.3 pg (27-33); Mean Corpuscular Hgb Conc 32.8 g/dL (31-36); Mean Corpuscular Volume 86.3 fL (80-97); Mean Platelet Volume 9.1 fL (7.5-11.2); Platelet Count 350 10^3/uL (150-450); Red Blood Count 2.97 10^6/uL (3.63-4.92); Red Cell Distribution Width 14.2 % (12-17); White Blood Count 8.8 10^3/uL (3.8-11.8)
[2022-11-22 06:40] LABS: Calcium 7.7 mg/dL (8.6-10.3); Creatinine, Serum 0.62 mg/dL (0.51-0.95); Magnesium 1.9 mg/dL (1.9-2.7); Phosphorus 3.3 mg/dL (2.5-5.0); Potassium 4.3 mmol/L (3.5-5.0); eGFR CKD-EPI 95.1 (>60)
[2022-11-22] MEDS: Acetaminophen IV 1 GM/100ML 1,000 MG/100 ML BAG IV PRN (07:37)
[2022-11-22] MEDS: oxyCODONE 5 mg/5 ml ORAL.SOLN UDC PO PRN (09:49)
[2022-11-22] MEDS: Calcium Carb (TUMS) 500 mg CHEW TAB PO SCH ×3 (09:50→21:37)
[2022-11-22] MEDS: Psyllium PAK PO SCH (09:51)
[2022-11-22] MEDS: Insulin GLARGINE 100 un/ml 10 ml VIAL SUBCUT SCH (09:51)
[2022-11-22] MEDS: Enoxaparin 40 MG/0.4 ML SYR SUBCUT SCH (15:06)
[2022-11-23 06:23] LABS: ABS Basophils 0.1 10^3/uL (0.0-0.1); ABS Eosinophils 0.1 10^3/uL (0.0-0.5); ABS Lymphocytes 1.9 10^3/uL (1.0-4.8); ABS Monocytes 0.6 10^3/uL (0.0-0.9); ABS Neutrophils 5.5 10^3/uL (1.5-7.6); ABS Nucleated RBC 0.01 10^3/ul; Hematocrit 25.5 % (35-45); Hemoglobin 8.6 g/dL (11.5-14.3); Lymphocyte % 23.4 %; Mean Corpuscular Hemoglobin 28.4 pg (27-33); Mean Corpuscular Hgb Conc 33.5 g/dL (31-36); Mean Corpuscular Volume 84.6 fL (80-97); Mean Platelet Volume 8.5 fL (7.5-11.2); Nucleated Red Blood Cells % 0.1 /100 WBC (0.0-0.4); Platelet Count 404 10^3/uL (150-450); Red Blood Count 3.02 10^6/uL (3.63-4.92); Red Cell Distribution Width 14.2 % (12-17); White Blood Count 8.2 10^3/uL (3.8-11.8)
[2022-11-23 07:04] LABS: Calcium 7.9 mg/dL (8.6-10.3); Creatinine, Serum 0.62 mg/dL (0.51-0.95); Magnesium 1.7 mg/dL (1.9-2.7); Potassium 4.3 mmol/L (3.5-5.0); eGFR CKD-EPI 95.1 (>60)
[2022-11-23] MEDS: Insulin GLARGINE 100 un/ml 10 ml VIAL SUBCUT SCH (09:08)
[2022-11-23] MEDS: Calcium Carb (TUMS) 500 mg CHEW TAB PO SCH ×3 (09:11→21:10)
[2022-11-23] MEDS: Psyllium PAK PO SCH (09:11)
[2022-11-23] MEDS ORDERED: Magnesium Sulfate IV 3 GM in NS 0.9% 100 ml BAG 100 ML IVPB ONE (09:30)
[2022-11-23] MEDS: Enoxaparin 40 MG/0.4 ML SYR SUBCUT SCH (12:47)
[2022-11-23] MEDS: oxyCODONE 5 mg/5 ml ORAL.SOLN UDC PO PRN (19:20)
[2022-11-23] MEDS: Ondansetron 4 mg VIAL 2 MG/ML 2 ml VIAL IV PRN (19:21)
[2022-11-24 06:31] LABS: ABS Basophils 0.1 10^3/uL (0.0-0.1); ABS Eosinophils 0.1 10^3/uL (0.0-0.5); ABS Lymphocytes 2.2 10^3/uL (1.0-4.8); ABS Monocytes 0.6 10^3/uL (0.0-0.9); ABS Neutrophils 4.8 10^3/uL (1.5-7.6); Eosinophil % 1.3 %; Hemoglobin 8.6 g/dL (11.5-14.3); Lymphocyte % 28.5 %; Mean Corpuscular Hemoglobin 28.2 pg (27-33); Mean Corpuscular Hgb Conc 33.2 g/dL (31-36); Mean Platelet Volume 8.1 fL (7.5-11.2); Platelet Count 486 10^3/uL (150-450); Red Blood Count 3.05 10^6/uL (3.63-4.92); Red Cell Distribution Width 14.3 % (12-17); White Blood Count 7.7 10^3/uL (3.8-11.8)
[2022-11-24 07:01] LABS: Calcium 8.1 mg/dL (8.6-10.3); Creatinine, Serum 0.7 mg/dL (0.51-0.95); Magnesium 2.1 mg/dL (1.9-2.7); Potassium 4.5 mmol/L (3.5-5.0); eGFR CKD-EPI 92.4 (>60)
[2022-11-24] MEDS: Insulin GLARGINE 100 un/ml 10 ml VIAL SUBCUT SCH (08:59)
[2022-11-24] MEDS: Calcium Carb (TUMS) 500 mg CHEW TAB PO SCH ×3 (08:59→20:45)
[2022-11-24] MEDS: Psyllium PAK PO SCH (08:59)
[2022-11-24] MEDS: oxyCODONE 5 mg/5 ml ORAL.SOLN UDC PO PRN (11:29)
[2022-11-24] MEDS: Enoxaparin 40 MG/0.4 ML SYR SUBCUT SCH (11:57)
[2022-11-24] MEDS ORDERED: NS 0.9% 500 ml BAG 500 ML IV ONE (14:47)
[2022-11-24] MEDS: Acetaminophen IV 1 GM/100ML 1,000 MG/100 ML BAG IV PRN (15:01)
[2022-11-25 06:32] VITALS: BP 112/62
[2022-11-25 07:15] LABS: Calcium 7.9 mg/dL (8.6-10.3); Creatinine, Serum 0.69 mg/dL (0.51-0.95); Magnesium 1.8 mg/dL (1.9-2.7); Potassium 4.2 mmol/L (3.5-5.0); eGFR CKD-EPI 92.7 (>60)
[2022-11-25] MEDS ORDERED: Magnesium Sulfate 2 gm BAG 2 GM/50 ML BAG IVPB ONE (07:56)
[2022-11-25 07:58] LABS: ABS Basophils 0.1 10^3/uL (0.0-0.1); ABS Eosinophils 0.2 10^3/uL (0.0-0.5); ABS Lymphocytes 1.9 10^3/uL (1.0-4.8); ABS Monocytes 0.5 10^3/uL (0.0-0.9); ABS Neutrophils 4.1 10^3/uL (1.5-7.6); ABS Nucleated RBC 0.01 10^3/ul; Eosinophil % 2.2 %; Hematocrit 23.5 % (35-45); Hemoglobin 7.9 g/dL (11.5-14.3); Lymphocyte % 28.2 %; Mean Corpuscular Hemoglobin 28.3 pg (27-33); Mean Corpuscular Hgb Conc 33.5 g/dL (31-36); Mean Corpuscular Volume 84.5 fL (80-97); Nucleated Red Blood Cells % 0.1 /100 WBC (0.0-0.4); Platelet Count 443 10^3/uL (150-450); Red Blood Count 2.78 10^6/uL (3.63-4.92); Red Cell Distribution Width 14.1 % (12-17); White Blood Count 6.8 10^3/uL (3.8-11.8)
[2022-11-25] MEDS: Psyllium PAK PO SCH (08:17)
[2022-11-25] MEDS: Calcium Carb (TUMS) 500 mg CHEW TAB PO SCH (08:17)
[2022-11-25] MEDS: Insulin GLARGINE 100 un/ml 10 ml VIAL SUBCUT SCH (08:17)
== END 2022-11-25 08:57 | DRG 329 ==
LOC: ED 12:00 → EDHOLD 15:17 → SUATTDRO 15:17 → EDHOLD 17:17 → ICU 19:27 → SSU 11-20 13:24
PROVIDERS: ADMIT Surgery Surgical Critical Care; ATTEND Internal Medicine

== ENCOUNTER 2022-11-25 07:08 | Inpatient (IN) ==
[2022-11-25] MEDS ORDERED: Magnesium Hydroxide LIQ 30 ML UDC PO PRN (12:03)
[2022-11-25] MEDS ORDERED: Senna TAB 8.6 mg TAB PO PRN (12:03)
[2022-11-25] MEDS ORDERED: Morphine 2 MG/ML SYRINGE IV ONE (12:14)
[2022-11-25] MEDS ORDERED: Dextrose 50% Syringe 50 ml 25 GM/50 ML SYRINGE IV PUSH PRN (12:19)
[2022-11-25] MEDS: Calcium Carb (TUMS) 500 mg CHEW TAB PO SCH ×2 (14:10→20:49)
[2022-11-25] MEDS: Enoxaparin 40 MG/0.4 ML SYR SUBCUT SCH (14:11)
[2022-11-25] MEDS: Morphine 2 MG/ML SYRINGE IV PRN (19:21)
[2022-11-26] MEDS: Calcium Carb (TUMS) 500 mg CHEW TAB PO SCH ×3 (09:41→19:41)
[2022-11-26] MEDS: Psyllium PAK PO SCH (09:42)
[2022-11-26] MEDS: Morphine 2 MG/ML SYRINGE IV PRN (09:51)
[2022-11-26] MEDS: Insulin GLARGINE 100 un/ml 10 ml VIAL SUBCUT SCH (10:11)
[2022-11-26] MEDS: Enoxaparin 40 MG/0.4 ML SYR SUBCUT SCH (12:26)
[2022-11-26] MEDS ORDERED: Morphine 2 MG/ML SYRINGE IV PRN (18:16)
[2022-11-27] MEDS: Psyllium PAK PO SCH (08:16)
[2022-11-27] MEDS: Calcium Carb (TUMS) 500 mg CHEW TAB PO SCH ×3 (08:17→21:37)
[2022-11-27] MEDS: Insulin GLARGINE 100 un/ml 10 ml VIAL SUBCUT SCH (08:18)
[2022-11-27] MEDS: Enoxaparin 40 MG/0.4 ML SYR SUBCUT SCH (12:57)
[2022-11-28 06:46] LABS: ABS Eosinophils 0.1 10^3/uL (0.0-0.5); ABS Lymphocytes 1.6 10^3/uL (1.0-4.8); ABS Monocytes 0.7 10^3/uL (0.0-0.9); ABS Neutrophils 3.4 10^3/uL (1.5-7.6); Eosinophil % 2.5 %; Hematocrit 24.9 % (35-45); Hemoglobin 8.4 g/dL (11.5-14.3); Lymphocyte % 26.9 %; Mean Corpuscular Hemoglobin 28.2 pg (27-33); Mean Corpuscular Hgb Conc 33.6 g/dL (31-36); Mean Corpuscular Volume 84.1 fL (80-97); Mean Platelet Volume 7.2 fL (7.5-11.2); Platelet Count 460 10^3/uL (150-450); Red Blood Count 2.97 10^6/uL (3.63-4.92); Red Cell Distribution Width 14.5 % (12-17); White Blood Count 5.9 10^3/uL (3.8-11.8)
[2022-11-28 07:13] LABS: Albumin 2.6 g/dL (3.2-5.2); Calcium 8.2 mg/dL (8.6-10.3); Creatinine, Serum 0.71 mg/dL (0.51-0.95); Globulin 2.7 g/dL (2-4); Potassium 4.5 mmol/L (3.5-5.0); Total Bilirubin 0.3 mg/dL (0.2-1.0); Total Protein 5.3 g/dL (6.4-8.9); eGFR CKD-EPI 90.8 (>60)
[2022-11-28] MEDS: Insulin GLARGINE 100 un/ml 10 ml VIAL SUBCUT SCH (08:55)
[2022-11-28] MEDS: Psyllium PAK PO SCH (08:59)
[2022-11-28] MEDS: Calcium Carb (TUMS) 500 mg CHEW TAB PO SCH ×3 (08:59→19:44)
[2022-11-28] MEDS: Morphine ORAL.SOLN 10 mg 2 mg/ml UDC 5 ml (10 mg) PO PRN (10:13)
[2022-11-28] MEDS: Enoxaparin 40 MG/0.4 ML SYR SUBCUT SCH (13:57)
[2022-11-29] MEDS: Calcium Carb (TUMS) 500 mg CHEW TAB PO SCH ×3 (08:32→21:03)
[2022-11-29] MEDS: Insulin GLARGINE 100 un/ml 10 ml VIAL SUBCUT SCH (08:33)
[2022-11-29] MEDS: Psyllium PAK PO SCH (13:22)
[2022-11-29] MEDS: Enoxaparin 40 MG/0.4 ML SYR SUBCUT SCH (16:17)
[2022-11-30] MEDS: Calcium Carb (TUMS) 500 mg CHEW TAB PO SCH ×3 (07:39→20:53)
[2022-11-30] MEDS: Morphine ORAL.SOLN 10 mg 2 mg/ml UDC 5 ml (10 mg) PO PRN ×2 (07:40→14:42)
[2022-11-30] MEDS: Enoxaparin 40 MG/0.4 ML SYR SUBCUT SCH (07:42)
[2022-11-30] MEDS: Insulin GLARGINE 100 un/ml 10 ml VIAL SUBCUT SCH (12:12)
[2022-12-01] MEDS: oxyCODONE SR 15 mg TAB PO SCH (07:27)
[2022-12-01] MEDS: Calcium Carb (TUMS) 500 mg CHEW TAB PO SCH ×3 (07:27→21:23)
[2022-12-01] MEDS: Enoxaparin 40 MG/0.4 ML SYR SUBCUT SCH (07:29)
[2022-12-01] MEDS: Insulin GLARGINE 100 un/ml 10 ml VIAL SUBCUT SCH (07:31)
[2022-12-01] MEDS ORDERED: NS 0.9% 500 ml BAG 500 ML IV ONE ×2 (12:53→15:51)
[2022-12-01 13:21] LABS: ABS Basophils 0.1 10^3/uL (0.0-0.1); ABS Eosinophils 0.1 10^3/uL (0.0-0.5); ABS Lymphocytes 2.1 10^3/uL (1.0-4.8); ABS Monocytes 0.6 10^3/uL (0.0-0.9); ABS Neutrophils 5.6 10^3/uL (1.5-7.6); Eosinophil % 1.7 %; Hemoglobin 9.3 g/dL (11.5-14.3); Lymphocyte % 24.5 %; Mean Corpuscular Hemoglobin 27.6 pg (27-33); Mean Corpuscular Hgb Conc 33.3 g/dL (31-36); Mean Corpuscular Volume 82.9 fL (80-97); Mean Platelet Volume 7.4 fL (7.5-11.2); Platelet Count 494 10^3/uL (150-450); Red Blood Count 3.37 10^6/uL (3.63-4.92); Red Cell Distribution Width 14.5 % (12-17); White Blood Count 8.5 10^3/uL (3.8-11.8)
[2022-12-01 14:00] LABS: Calcium 8.6 mg/dL (8.6-10.3); Creatinine, Serum 1.33 mg/dL (0.51-0.95); Potassium 4.4 mmol/L (3.5-5.0); eGFR CKD-EPI 42.8 (>60)
[2022-12-01] MEDS: NS 0.9% 1000 ml BAG 1,000 ML IV SCH (16:24)
[2022-12-01 16:55] LABS: TSH Ultra Thyroid Stim Horm 4.05 mcIU/mL (0.34-5.60)
[2022-12-01 16:56] LABS: Free T4 1.09 ng/dL (0.61-1.12)
[2022-12-01 17:03] LABS: Magnesium 1.5 mg/dL (1.9-2.7); Phosphorus 4.8 mg/dL (2.5-5.0)
[2022-12-01 17:07] LABS: Folate 16.69 ng/mL (5.90-24.80)
[2022-12-01] MEDS ORDERED: Magnesium Sulfate IV 3 GM in NS 0.9% 100 ml BAG 100 ML IVPB ONE (17:12)
[2022-12-01 19:43] LABS: Calcium 7.8 mg/dL (8.6-10.3)
[2022-12-01 19:54] LABS: Creatinine, Serum 1.15 mg/dL (0.51-0.95); eGFR CKD-EPI 50.9 (>60)
[2022-12-01 21:35] LABS: Urine Appearance Clear; Urine Bilirubin Negative (Negative); Urine Blood Negative (Negative); Urine Color Yellow; Urine Glucose Negative (Negative); Urine Ketones Negative (Negative); Urine Nitrite Negative (Negative); Urine Protein Negative (Negative); Urine Specific Gravity 1.006 (1.002-1.030); Urine Urobilinogen Negative (Negative)
[2022-12-02] MEDS: NS 0.9% 1000 ml BAG 1,000 ML IV SCH (05:27)
[2022-12-02 06:51] LABS: ABS Eosinophils 0.2 10^3/uL (0.0-0.5); ABS Lymphocytes 1.8 10^3/uL (1.0-4.8); ABS Monocytes 0.5 10^3/uL (0.0-0.9); ABS Neutrophils 2.9 10^3/uL (1.5-7.6); Eosinophil % 3.9 %; Hemoglobin 7.6 g/dL (11.5-14.3); Lymphocyte % 32.9 %; Mean Corpuscular Hemoglobin 27.5 pg (27-33); Mean Corpuscular Hgb Conc 32.8 g/dL (31-36); Mean Corpuscular Volume 83.9 fL (80-97); Mean Platelet Volume 7.3 fL (7.5-11.2); Nucleated Red Blood Cells % 0.1 /100 WBC (0.0-0.4); Platelet Count 358 10^3/uL (150-450); Red Blood Count 2.75 10^6/uL (3.63-4.92); Red Cell Distribution Width 14.2 % (12-17); White Blood Count 5.4 10^3/uL (3.8-11.8)
[2022-12-02 07:37] LABS: Albumin 2.3 g/dL (3.2-5.2); Calcium 7.7 mg/dL (8.6-10.3); Creatinine, Serum 0.91 mg/dL (0.51-0.95); Globulin 2.3 g/dL (2-4); Potassium 3.8 mmol/L (3.5-5.0); Total Bilirubin 0.2 mg/dL (0.2-1.0); Total Protein 4.6 g/dL (6.4-8.9); eGFR CKD-EPI 67.4 (>60)
[2022-12-02] MEDS: Calcium Carb (TUMS) 500 mg CHEW TAB PO SCH ×3 (08:40→21:35)
[2022-12-02] MEDS: oxyCODONE SR 15 mg TAB PO SCH (08:40)
[2022-12-02] MEDS: Enoxaparin 40 MG/0.4 ML SYR SUBCUT SCH (08:43)
[2022-12-02] MEDS: Insulin GLARGINE 100 un/ml 10 ml VIAL SUBCUT SCH (08:44)
[2022-12-02] MEDS: Morphine ORAL.SOLN 10 mg 2 mg/ml UDC 5 ml (10 mg) PO PRN ×2 (10:40→16:31)
[2022-12-03] MEDS: Enoxaparin 40 MG/0.4 ML SYR SUBCUT SCH (07:52)
[2022-12-03] MEDS: Calcium Carb (TUMS) 500 mg CHEW TAB PO SCH ×3 (07:53→20:38)
[2022-12-03] MEDS: oxyCODONE SR 15 mg TAB PO SCH (07:54)
[2022-12-03 08:00] LABS: ABS Basophils 0.1 10^3/uL (0.0-0.1); ABS Eosinophils 0.3 10^3/uL (0.0-0.5); ABS Lymphocytes 1.9 10^3/uL (1.0-4.8); ABS Monocytes 0.6 10^3/uL (0.0-0.9); ABS Neutrophils 3.5 10^3/uL (1.5-7.6); Eosinophil % 4.6 %; Hematocrit 26.4 % (35-45); Hemoglobin 8.8 g/dL (11.5-14.3); Lymphocyte % 29.7 %; Mean Corpuscular Hemoglobin 27.6 pg (27-33); Mean Corpuscular Hgb Conc 33.1 g/dL (31-36); Mean Corpuscular Volume 83.2 fL (80-97); Mean Platelet Volume 7.2 fL (7.5-11.2); Nucleated Red Blood Cells % 0.1 /100 WBC (0.0-0.4); Platelet Count 380 10^3/uL (150-450); Red Blood Count 3.18 10^6/uL (3.63-4.92); Red Cell Distribution Width 14.6 % (12-17); White Blood Count 6.3 10^3/uL (3.8-11.8)
[2022-12-03] MEDS: Insulin GLARGINE 100 un/ml 10 ml VIAL SUBCUT SCH (08:36)
[2022-12-03] MEDS: Morphine ORAL.SOLN 10 mg 2 mg/ml UDC 5 ml (10 mg) PO PRN (18:43)
[2022-12-03] MEDS: Ondansetron ODT 4 mg TAB 4 MG TAB SL PRN (22:34)
[2022-12-04] MEDS: Morphine ORAL.SOLN 10 mg 2 mg/ml UDC 5 ml (10 mg) PO PRN ×2 (07:22→21:10)
[2022-12-04] MEDS: Calcium Carb (TUMS) 500 mg CHEW TAB PO SCH ×3 (08:23→20:39)
[2022-12-04] MEDS: Enoxaparin 40 MG/0.4 ML SYR SUBCUT SCH (08:24)
[2022-12-04] MEDS: oxyCODONE SR 15 mg TAB PO SCH (08:24)
[2022-12-04] MEDS: Insulin GLARGINE 100 un/ml 10 ml VIAL SUBCUT SCH (09:02)
[2022-12-04] MEDS ORDERED: Dextrose 50% Syringe 50 ml 25 GM/50 ML SYRINGE IV PUSH PRN (18:46)
[2022-12-05 07:42] LABS: Albumin 2.6 g/dL (3.2-5.2); Albumin/Globulin Ratio 1.1 (1-3); Calcium 8.3 mg/dL (8.6-10.3); Creatinine, Serum 0.82 mg/dL (0.51-0.95); Globulin 2.4 g/dL (2-4); Total Bilirubin 0.2 mg/dL (0.2-1.0); eGFR CKD-EPI 76.4 (>60)
[2022-12-05] MEDS: oxyCODONE SR 20 mg TAB PO SCH (07:52)
[2022-12-05] MEDS: Calcium Carb (TUMS) 500 mg CHEW TAB PO SCH ×3 (07:52→21:20)
[2022-12-05] MEDS: Insulin GLARGINE 100 un/ml 10 ml VIAL SUBCUT SCH (07:56)
[2022-12-05] MEDS: Enoxaparin 40 MG/0.4 ML SYR SUBCUT SCH (07:58)
[2022-12-05 09:09] LABS: ABS Eosinophils 0.4 10^3/uL (0.0-0.5); ABS Lymphocytes 2.2 10^3/uL (1.0-4.8); ABS Monocytes 0.5 10^3/uL (0.0-0.9); ABS Neutrophils 2.2 10^3/uL (1.5-7.6); ABS Nucleated RBC 0.02 10^3/ul; Eosinophil % 7.5 %; Hematocrit 25.1 % (35-45); Hemoglobin 8.1 g/dL (11.5-14.3); Lymphocyte % 40.5 %; Mean Corpuscular Hemoglobin 27.2 pg (27-33); Mean Corpuscular Hgb Conc 32.4 g/dL (31-36); Mean Corpuscular Volume 83.9 fL (80-97); Mean Platelet Volume 7.4 fL (7.5-11.2); Nucleated Red Blood Cells % 0.3 /100 WBC (0.0-0.4); Platelet Count 338 10^3/uL (150-450); Red Cell Distribution Width 14.7 % (12-17); White Blood Count 5.3 10^3/uL (3.8-11.8)
[2022-12-05] MEDS: Morphine ORAL.SOLN 10 mg 2 mg/ml UDC 5 ml (10 mg) PO PRN (10:30)
[2022-12-06] MEDS: Ondansetron ODT 4 mg TAB 4 MG TAB SL PRN ×2 (00:55→11:54)
[2022-12-06] MEDS: oxyCODONE SR 20 mg TAB PO SCH (08:44)
[2022-12-06] MEDS: Enoxaparin 40 MG/0.4 ML SYR SUBCUT SCH (08:45)
[2022-12-06] MEDS: Calcium Carb (TUMS) 500 mg CHEW TAB PO SCH ×3 (08:45→20:11)
[2022-12-06] MEDS: Insulin GLARGINE 100 un/ml 10 ml VIAL SUBCUT SCH (08:45)
[2022-12-07] MEDS: Insulin GLARGINE 100 un/ml 10 ml VIAL SUBCUT SCH (08:45)
[2022-12-07] MEDS: Enoxaparin 40 MG/0.4 ML SYR SUBCUT SCH (08:46)
[2022-12-07] MEDS: Calcium Carb (TUMS) 500 mg CHEW TAB PO SCH ×3 (08:47→21:25)
[2022-12-07] MEDS: oxyCODONE SR 20 mg TAB PO SCH (08:48)
[2022-12-07] MEDS: Morphine ORAL.SOLN 10 mg 2 mg/ml UDC 5 ml (10 mg) PO PRN (10:12)
[2022-12-08] MEDS: Insulin GLARGINE 100 un/ml 10 ml VIAL SUBCUT SCH (08:32)
[2022-12-08] MEDS: Calcium Carb (TUMS) 500 mg CHEW TAB PO SCH ×3 (08:34→20:47)
[2022-12-08] MEDS: oxyCODONE SR 20 mg TAB PO SCH (08:34)
[2022-12-08] MEDS: Enoxaparin 40 MG/0.4 ML SYR SUBCUT SCH (08:37)
[2022-12-08] MEDS: Ondansetron ODT 4 mg TAB 4 MG TAB SL PRN (21:59)
[2022-12-09 06:24] LABS: ABS Eosinophils 0.2 10^3/uL (0.0-0.5); ABS Lymphocytes 2.5 10^3/uL (1.0-4.8); ABS Monocytes 0.6 10^3/uL (0.0-0.9); ABS Neutrophils 3.6 10^3/uL (1.5-7.6); Eosinophil % 2.2 %; Hematocrit 25.9 % (35-45); Hemoglobin 8.6 g/dL (11.5-14.3); Lymphocyte % 35.9 %; Mean Corpuscular Hemoglobin 27.2 pg (27-33); Mean Corpuscular Hgb Conc 33.2 g/dL (31-36); Mean Corpuscular Volume 81.8 fL (80-97); Mean Platelet Volume 6.9 fL (7.5-11.2); Nucleated Red Blood Cells % 0.1 /100 WBC (0.0-0.4); Platelet Count 351 10^3/uL (150-450); Red Blood Count 3.16 10^6/uL (3.63-4.92); Red Cell Distribution Width 15.1 % (12-17); White Blood Count 6.9 10^3/uL (3.8-11.8)
[2022-12-09] MEDS: oxyCODONE SR 20 mg TAB PO SCH (09:47)
[2022-12-09] MEDS: Calcium Carb (TUMS) 500 mg CHEW TAB PO SCH ×3 (09:47→21:11)
[2022-12-09] MEDS: Insulin GLARGINE 100 un/ml 10 ml VIAL SUBCUT SCH (09:47)
[2022-12-09] MEDS: Enoxaparin 40 MG/0.4 ML SYR SUBCUT SCH (09:48)
[2022-12-09] MEDS: Morphine ORAL.SOLN 10 mg 2 mg/ml UDC 5 ml (10 mg) PO PRN (11:17)
[2022-12-09 17:54] LABS: Albumin 3.2 g/dL (3.2-5.2); Albumin/Globulin Ratio 1.1 (1-3); Calcium 8.8 mg/dL (8.6-10.3); Creatinine, Serum 0.9 mg/dL (0.51-0.95); Potassium 3.8 mmol/L (3.5-5.0); Total Bilirubin 0.2 mg/dL (0.2-1.0); Total Protein 6.2 g/dL (6.4-8.9); eGFR CKD-EPI 68.3 (>60)
[2022-12-09] MEDS: Ondansetron ODT 4 mg TAB 4 MG TAB SL PRN (18:41)
[2022-12-10] MEDS: Insulin GLARGINE 100 un/ml 10 ml VIAL SUBCUT SCH (08:36)
[2022-12-10] MEDS: Enoxaparin 40 MG/0.4 ML SYR SUBCUT SCH (08:38)
[2022-12-10] MEDS: Ondansetron ODT 4 mg TAB 4 MG TAB SL PRN (08:39)
[2022-12-10] MEDS: Calcium Carb (TUMS) 500 mg CHEW TAB PO SCH ×3 (08:39→21:11)
[2022-12-10] MEDS: oxyCODONE SR 20 mg TAB PO SCH (08:41)
[2022-12-11] MEDS: Ondansetron ODT 4 mg TAB 4 MG TAB SL PRN (03:58)
[2022-12-11] MEDS: Insulin GLARGINE 100 un/ml 10 ml VIAL SUBCUT SCH (08:30)
[2022-12-11] MEDS: oxyCODONE SR 20 mg TAB PO SCH (08:31)
[2022-12-11] MEDS: Calcium Carb (TUMS) 500 mg CHEW TAB PO SCH ×3 (08:32→20:22)
[2022-12-11] MEDS: Enoxaparin 40 MG/0.4 ML SYR SUBCUT SCH (08:33)
[2022-12-11] MEDS: Morphine ORAL.SOLN 10 mg 2 mg/ml UDC 5 ml (10 mg) PO PRN (11:02)
[2022-12-12] MEDS: Ondansetron ODT 4 mg TAB 4 MG TAB SL PRN ×3 (06:14→23:27)
[2022-12-12 06:54] LABS: ABS Basophils 0.1 10^3/uL (0.0-0.1); ABS Eosinophils 0.2 10^3/uL (0.0-0.5); ABS Lymphocytes 2.9 10^3/uL (1.0-4.8); ABS Monocytes 0.5 10^3/uL (0.0-0.9); ABS Neutrophils 3.5 10^3/uL (1.5-7.6); ABS Nucleated RBC 0.03 10^3/ul; Eosinophil % 3.3 %; Hematocrit 28.6 % (35-45); Hemoglobin 9.4 g/dL (11.5-14.3); Lymphocyte % 40.2 %; Mean Corpuscular Hemoglobin 26.8 pg (27-33); Mean Corpuscular Hgb Conc 32.9 g/dL (31-36); Mean Corpuscular Volume 81.4 fL (80-97); Mean Platelet Volume 7.4 fL (7.5-11.2); Nucleated Red Blood Cells % 0.4 /100 WBC (0.0-0.4); Platelet Count 409 10^3/uL (150-450); Red Blood Count 3.51 10^6/uL (3.63-4.92); Red Cell Distribution Width 15.2 % (12-17); White Blood Count 7.1 10^3/uL (3.8-11.8)
[2022-12-12 07:19] LABS: Albumin 3.1 g/dL (3.2-5.2); Creatinine, Serum 0.91 mg/dL (0.51-0.95); Globulin 3.1 g/dL (2-4); Potassium 3.9 mmol/L (3.5-5.0); Total Bilirubin 0.2 mg/dL (0.2-1.0); Total Protein 6.2 g/dL (6.4-8.9); eGFR CKD-EPI 67.4 (>60)
[2022-12-12] MEDS: Insulin GLARGINE 100 un/ml 10 ml VIAL SUBCUT SCH (09:11)
[2022-12-12] MEDS: Enoxaparin 40 MG/0.4 ML SYR SUBCUT SCH (09:12)
[2022-12-12] MEDS: Calcium Carb (TUMS) 500 mg CHEW TAB PO SCH ×3 (09:13→21:01)
[2022-12-12] MEDS: oxyCODONE SR 20 mg TAB PO SCH (09:15)
[2022-12-13] MEDS: Calcium Carb (TUMS) 500 mg CHEW TAB PO SCH ×3 (08:57→21:46)
[2022-12-13] MEDS: Enoxaparin 40 MG/0.4 ML SYR SUBCUT SCH (08:57)
[2022-12-13] MEDS: oxyCODONE SR 20 mg TAB PO SCH (08:57)
[2022-12-13] MEDS: Insulin GLARGINE 100 un/ml 10 ml VIAL SUBCUT SCH (08:58)
[2022-12-13] MEDS: Ondansetron ODT 4 mg TAB 4 MG TAB SL PRN ×2 (09:30→15:31)
[2022-12-13] MEDS: Morphine ORAL.SOLN 10 mg 2 mg/ml UDC 5 ml (10 mg) PO PRN (11:19)
[2022-12-14] MEDS: Ondansetron ODT 4 mg TAB 4 MG TAB SL PRN (04:54)
[2022-12-14] MEDS: Insulin GLARGINE 100 un/ml 10 ml VIAL SUBCUT SCH (07:55)
[2022-12-14] MEDS: Enoxaparin 40 MG/0.4 ML SYR SUBCUT SCH (07:57)
[2022-12-14] MEDS: Calcium Carb (TUMS) 500 mg CHEW TAB PO SCH ×3 (07:59→20:16)
[2022-12-14] MEDS: oxyCODONE SR 20 mg TAB PO SCH (08:00)
[2022-12-15] MEDS: Ondansetron ODT 4 mg TAB 4 MG TAB SL PRN (00:38)
[2022-12-15] MEDS: Calcium Carb (TUMS) 500 mg CHEW TAB PO SCH ×3 (09:32→20:24)
[2022-12-15] MEDS: oxyCODONE SR 15 mg TAB PO SCH (09:36)
[2022-12-15] MEDS: Insulin GLARGINE 100 un/ml 10 ml VIAL SUBCUT SCH (09:39)
[2022-12-15] MEDS: Enoxaparin 40 MG/0.4 ML SYR SUBCUT SCH (09:40)
[2022-12-16] MEDS: Ondansetron ODT 4 mg TAB 4 MG TAB SL PRN ×2 (06:07→14:58)
[2022-12-16] MEDS: oxyCODONE SR 15 mg TAB PO SCH (08:46)
[2022-12-16] MEDS: Calcium Carb (TUMS) 500 mg CHEW TAB PO SCH ×3 (08:47→21:36)
[2022-12-16] MEDS: Enoxaparin 40 MG/0.4 ML SYR SUBCUT SCH (08:49)
[2022-12-16] MEDS: Insulin GLARGINE 100 un/ml 10 ml VIAL SUBCUT SCH (10:11)
[2022-12-16] MEDS: Morphine ORAL.SOLN 10 mg 2 mg/ml UDC 5 ml (10 mg) PO PRN (15:40)
[2022-12-17] MEDS: oxyCODONE SR 15 mg TAB PO SCH (09:29)
[2022-12-17] MEDS: Calcium Carb (TUMS) 500 mg CHEW TAB PO SCH ×3 (09:29→21:10)
[2022-12-17] MEDS: Insulin GLARGINE 100 un/ml 10 ml VIAL SUBCUT SCH (09:32)
[2022-12-17] MEDS: Enoxaparin 40 MG/0.4 ML SYR SUBCUT SCH (09:35)
[2022-12-17] MEDS: Ondansetron ODT 4 mg TAB 4 MG TAB SL PRN (11:11)
[2022-12-18] MEDS: Ondansetron ODT 4 mg TAB 4 MG TAB SL PRN (02:11)
[2022-12-18] MEDS: oxyCODONE SR 15 mg TAB PO SCH (07:35)
[2022-12-18] MEDS: Calcium Carb (TUMS) 500 mg CHEW TAB PO SCH ×3 (07:35→21:35)
[2022-12-18] MEDS: Morphine ORAL.SOLN 10 mg 2 mg/ml UDC 5 ml (10 mg) PO PRN (07:52)
[2022-12-18] MEDS: Insulin GLARGINE 100 un/ml 10 ml VIAL SUBCUT SCH (09:47)
[2022-12-18] MEDS: Enoxaparin 40 MG/0.4 ML SYR SUBCUT SCH (09:48)
[2022-12-19] MEDS: oxyCODONE SR 15 mg TAB PO SCH (07:13)
[2022-12-19 07:35] LABS: ABS Basophils 0.1 10^3/uL (0.0-0.1); ABS Eosinophils 0.3 10^3/uL (0.0-0.5); ABS Lymphocytes 2.2 10^3/uL (1.0-4.8); ABS Monocytes 0.7 10^3/uL (0.0-0.9); ABS Neutrophils 4.4 10^3/uL (1.5-7.6); Eosinophil % 3.3 %; Hematocrit 28.7 % (35-45); Hemoglobin 9.3 g/dL (11.5-14.3); Lymphocyte % 29.3 %; Mean Corpuscular Hemoglobin 26.2 pg (27-33); Mean Corpuscular Hgb Conc 32.2 g/dL (31-36); Mean Corpuscular Volume 81.2 fL (80-97); Mean Platelet Volume 7.8 fL (7.5-11.2); Platelet Count 426 10^3/uL (150-450); Red Blood Count 3.54 10^6/uL (3.63-4.92); Red Cell Distribution Width 15.9 % (12-17); White Blood Count 7.7 10^3/uL (3.8-11.8)
[2022-12-19 07:53] LABS: Albumin 3.1 g/dL (3.2-5.2); Calcium 8.9 mg/dL (8.6-10.3); Creatinine, Serum 0.74 mg/dL (0.51-0.95); Globulin 3.2 g/dL (2-4); Potassium 3.6 mmol/L (3.5-5.0); Total Bilirubin 0.3 mg/dL (0.2-1.0); Total Protein 6.3 g/dL (6.4-8.9); eGFR CKD-EPI 86.4 (>60)
[2022-12-19] MEDS: Enoxaparin 40 MG/0.4 ML SYR SUBCUT SCH (08:27)
[2022-12-19] MEDS: Insulin GLARGINE 100 un/ml 10 ml VIAL SUBCUT SCH (09:18)
[2022-12-19] MEDS: Calcium Carb (TUMS) 500 mg CHEW TAB PO SCH ×3 (09:19→21:14)
[2022-12-19] MEDS: Ondansetron ODT 4 mg TAB 4 MG TAB SL PRN (11:57)
[2022-12-19 19:30] LABS: Rapid COVID-19 Molecular Undetected (Undetected)
[2022-12-20 05:26] VITALS: BP 122/76
[2022-12-20] MEDS: Enoxaparin 40 MG/0.4 ML SYR SUBCUT SCH (08:43)
[2022-12-20] MEDS: Insulin GLARGINE 100 un/ml 10 ml VIAL SUBCUT SCH (08:43)
[2022-12-20] MEDS: oxyCODONE SR 15 mg TAB PO SCH (08:46)
[2022-12-20] MEDS: Calcium Carb (TUMS) 500 mg CHEW TAB PO SCH (08:46)
[2022-12-20] MEDS ORDERED: Psyllium PAK PO SCH (09:00)
[2022-12-20] MEDS: Morphine ORAL.SOLN 10 mg 2 mg/ml UDC 5 ml (10 mg) PO PRN (13:34)
== END 2022-12-20 14:15 | DRG 394 ==
LOC: PMRU 09:30
PROVIDERS: ADMIT Physical Medicine & Rehabilitation; ATTEND Physical Medicine & Rehabilitation